=== PATIENT | female | born 1935 | race Caucasian/White ===

== ENCOUNTER 2023-12-30 17:53 | Inpatient (IN) | payer MEDICARE, OTHER, SELFPAY ==
[2023-12-30] VITALS (23 sets, daily range): BP systolic 113–156; BP diastolic 56–109; BMI 25.8
--- NOTE | 2023-12-30 14:58 | ED.GENMED ---
History of Present Illness
<Elisabet Redd, [employer] - Last Filed: 12/31/23 11:18>
General
Chief Complaint: Breathing Problem
Source: patient
Exam Limitations: none
Time Seen by Provider: 12/30/23 14:57
Nursing documentation reviewed up to this point in time: agreed with
History of Present Illness
History of Present Illness:
88-year-old female with history of paroxysmal A-fib h/o ablation, chronic LE edema, M�ni�re's disease, GERD, CAD, HTN, HLD, rheumatoid arthritis on chronic prednisone, fibromyalgia, hypothyroid, low back pain due to lumbar compression fractures in
2022. Presents for 'afib.'
Pt states she had ablation 'years ago,' no Afib since and went into Afib last night with palpitations, shortness of breath, and fatigue. Denies CP, n/v/d/c.
<Noam Anders, DO - Last Filed: 12/30/23 16:51>
History of Present Illness
History of Present Illness:
See MDM
Past History
<Elisabet Redd, [employer] - Last Filed: 12/31/23 11:18>
Past History
ED Past Medical History: Arrthythmia (Atrial fib), CAD, HTN, Hypercholesterolemia, Hypothyroidism and Other (fibromyalgia)
ED Past Surgical History: Appendectomy, Cardiac (ablation, ), Orthopedic, Tonsilectomy and Other (Partial thyroidectomy)
Social History
Tobacco: Non-smoker
Alcohol: None
Drug: None
Personal:
Living: alone
Employment: Retired
Family History
Family History: Other (Mother with NV. Father with testicular cancer)
Phy Exam
<Noam Anders DO - Last Filed: 12/30/23 16:51>
Physical Exam
Physical Exam:
See MDM
Scores
<Noam M. Anders, DO - Last Filed: 12/30/23 16:51>
Heart Failure Risk
Heart Failure Risk Score: Not Applicable
Course
<Elisabet Redd, [employer] - Last Filed: 12/31/23 11:18>
Orders/Labs/Results
Orders:
Orders
12/30/23 14:17
ECG [Electrocardiogram (*1)] Urgent
Reason for Study: Chest Pain
EKG- Treatment ONCE
12/30/23 15:25
Diltiazem HCl [Cardizem] 10 mg IV NOW STA
CR Chest - 2 Views Urgent
Comment:
Reason For Exam: SOB
12/30/23 15:27
Complete Blood Count/With Diff Urgent
Comprehensive Metabolic Panel Urgent
NT-proBNP Urgent
PT/INR [Prothrombin Time] Urgent
Troponin I Urgent
12/30/23 15:41
EKG [Electrocardiogram (*1)] Urgent
Reason for Study: Bradycardia / Tachycardia
12/30/23 15:42
EKG- Treatment ONCE
12/30/23 17:13
Admit/Transfer Patient As Directed
Co-Sign Provider:
Level of Care: Inpatient admission
Assign to:: Telemetry
Physician / Group: Primitivo Feldman
Diagnosis: Atrial Fibrillation
Reason for Telemetry: Arrhythmia
Date to Stop Telemetry: 01/02/24
Time to Stop Telemetry: 11:00
Reason for Hospitalization: Atrial Fibrillation
Expected length of stay greater than two midnights?: Yes
ELOS- Estimated Length of Stay in days: 3
I certify the patient meets the requirements for IP care: Yes
12/30/23 17:14
PRN Pain Medication Management As Directed
May give lesser potent ordered pain med per pt: Yes
preference::
Protocol:: Medication orders for pain may be administered in a
manner that supports deferring to patient preference
when the pt is:
- Requesting an ordered lesser potent pain medication.
Least to most potent pain medications are defined
as: acetaminophen < NSAID < tramadol < opioids
(morphine, oxycodone, hydromorphone).
- Requesting a lesser dose of the same medication IF
ORDERED.
- Requesting a less intrusive route of administration
if both routes are prescribed by the provider (PO <
IV).
12/30/23 17:19
Code Status As Directed
Resuscitation Status: Do not resuscitate
Reached after discussion with pt or family/Healthcare POA: Yes
Decision communicated with: Patient
12/30/23 17:26
DNR Bracelet Application ONCE
12/30/23 20:38
Amlodipine [Norvasc] 2.5 mg PO BID
Diazepam [Valium] 5 mg PO BIDPRN PRN
Enoxaparin Sodium [Lovenox] 40 mg SC QPM
Potassium Chloride [KCl] 10 meq PO BID
12/30/23 20:38
CARDIOLOGY CONSULT Routine
Consulting Provider: Dino Loving
Was physician already notified: Yes
Activity As Directed
Activity Level: Out of Bed-Early Mobility
I&O [Intake/ Output] As Directed
Frequency: q12h
Vital Signs As Directed
Frequency: Per unit guidelines
Weight As Directed
Frequency: Daily
DX Deep Vein Thrombosis Video Routine
DX Deep Vein Thrombosis Video Routine
12/30/23 20:50
Carboxymethylcellulose [Refresh Celluvisc Gel] 1 drops BOTH EYES Q4HPRN PRN
12/30/23 22:00
Famotidine [Pepcid] 20 mg PO HS
Levothyroxine [Synthroid] 75 mcg PO HS
12/31/23 07:25
Basic Metabolic Panel IN AM
Complete Blood Count/No Diff IN AM
12/31/23 08:00
Aspirin Low Dose EC [Aspir Low (Enteric Coated)] 81 mg PO DAILY
Atenolol [Tenormin] 100 mg PO DAILY
Calcium Carbonate [Oscal Marcin 500] 500 mg PO DAILY
Cyanocobalamin [Vitamin B-12] 1,000 mcg PO DAILY
Fluorometholone [Fml 0.1% Ophthalmic Suspension] See Dose Instructions BOTH EYES DAILY
Furosemide [Lasix] 60 mg PO DAILY
Loratadine [Claritin] 10 mg PO DAILY
Prednisone [Deltasone] 2.5 mg PO DAILY
01/01/24 06:00
Basic Metabolic Panel IN AM
Complete Blood Count/No Diff IN AM
01/02/24 06:00
Basic Metabolic Panel IN AM
Complete Blood Count/No Diff IN AM
01/02/24 11:00
DC Protocol for Telemetry ONCE
Abnormal Lab Results
12/30/23
15:27
RDW 15.0 H %
(11.5-14.5)
Absolute Lymphs (auto) 0.8 L 10^3/uL
(1.2-3.4)
Neutrophils % 80.3 H %
(42.2-75.2)
Lymphocytes % 10.2 L %
(20.5-51.1)
BUN 29 H mg/dl
(7-17)
Glucose 108 H mg/dl
(70-99)
Calcium 10.7 H mg/dl
(8.4-10.2)
12/30/23 15:27
12/30/23 15:27
Vital Signs
Initial and Last Documented VS:
Initial Vital Signs
Temp Pulse Resp BP Pulse Ox
98.0 F 73 16 144/82 98
12/30/23 14:19 12/30/23 14:19 12/30/23 14:19 12/30/23 14:19 12/30/23 14:19
Last Documented Vital Signs
Temp Pulse Resp BP Pulse Ox
97.4 F 70 18 111/61 100
12/31/23 11:00 12/31/23 11:00 12/31/23 11:00 12/31/23 11:00 12/31/23 11:00
<Noam Anders, DO - Last Filed: 12/30/23 16:51>
Orders/Labs/Results
Orders:
Orders
12/30/23 14:17
ECG [Electrocardiogram (*1)] Urgent
Reason for Study: Chest Pain
EKG- Treatment ONCE
12/30/23 15:25
Diltiazem HCl [Cardizem] 10 mg IV NOW STA
CR Chest - 2 Views Urgent
Comment:
Reason For Exam: SOB
12/30/23 15:27
Complete Blood Count/With Diff Urgent
Comprehensive Metabolic Panel Urgent
NT-proBNP Urgent
PT/INR [Prothrombin Time] Urgent
Troponin I Urgent
12/30/23 15:41
EKG [Electrocardiogram (*1)] Urgent
Reason for Study: Bradycardia / Tachycardia
12/30/23 15:42
EKG- Treatment ONCE
12/30/23 17:13
Admit/Transfer Patient As Directed
Co-Sign Provider:
Level of Care: Inpatient admission
Assign to:: Telemetry
Physician / Group: Primitivo Feldman
Diagnosis: Atrial Fibrillation
Reason for Telemetry: Arrhythmia
Date to Stop Telemetry: 01/02/24
Time to Stop Telemetry: 11:00
Reason for Hospitalization: Atrial Fibrillation
Expected length of stay greater than two midnights?: Yes
ELOS- Estimated Length of Stay in days: 3
I certify the patient meets the requirements for IP care: Yes
12/30/23 17:14
PRN Pain Medication Management As Directed
May give lesser potent ordered pain med per pt: Yes
preference::
Protocol:: Medication orders for pain may be administered in a
manner that supports deferring to patient preference
when the pt is:
- Requesting an ordered lesser potent pain medication.
Least to most potent pain medications are defined
as: acetaminophen < NSAID < tramadol < opioids
(morphine, oxycodone, hydromorphone).
- Requesting a lesser dose of the same medication IF
ORDERED.
- Requesting a less intrusive route of administration
if both routes are prescribed by the provider (PO <
IV).
12/30/23 17:19
Code Status As Directed
Resuscitation Status: Do not resuscitate
Reached after discussion with pt or family/Healthcare POA: Yes
Decision communicated with: Patient
12/30/23 17:26
DNR Bracelet Application ONCE
12/30/23 20:38
Amlodipine [Norvasc] 2.5 mg PO BID
Diazepam [Valium] 5 mg PO BIDPRN PRN
Enoxaparin Sodium [Lovenox] 40 mg SC QPM
Potassium Chloride [KCl] 10 meq PO BID
12/30/23 20:38
CARDIOLOGY CONSULT Routine
Consulting Provider: Dino Loving
Was physician already notified: Yes
Activity As Directed
Activity Level: Out of Bed-Early Mobility
I&O [Intake/ Output] As Directed
Frequency: q12h
Vital Signs As Directed
Frequency: Per unit guidelines
Weight As Directed
Frequency: Daily
DX Deep Vein Thrombosis Video Routine
DX Deep Vein Thrombosis Video Routine
12/30/23 20:50
Carboxymethylcellulose [Refresh Celluvisc Gel] 1 drops BOTH EYES Q4HPRN PRN
12/30/23 22:00
Famotidine [Pepcid] 20 mg PO HS
Levothyroxine [Synthroid] 75 mcg PO HS
12/31/23 07:25
Basic Metabolic Panel IN AM
Complete Blood Count/No Diff IN AM
12/31/23 08:00
Aspirin Low Dose EC [Aspir Low (Enteric Coated)] 81 mg PO DAILY
Atenolol [Tenormin] 100 mg PO DAILY
Calcium Carbonate [Oscal Marcin 500] 500 mg PO DAILY
Cyanocobalamin [Vitamin B-12] 1,000 mcg PO DAILY
Fluorometholone [Fml 0.1% Ophthalmic Suspension] See Dose Instructions BOTH EYES DAILY
Furosemide [Lasix] 60 mg PO DAILY
Loratadine [Claritin] 10 mg PO DAILY
Prednisone [Deltasone] 2.5 mg PO DAILY
01/01/24 06:00
Basic Metabolic Panel IN AM
Complete Blood Count/No Diff IN AM
01/02/24 06:00
Basic Metabolic Panel IN AM
Complete Blood Count/No Diff IN AM
01/02/24 11:00
DC Protocol for Telemetry ONCE
Abnormal Lab Results
12/30/23
15:27
RDW 15.0 H %
(11.5-14.5)
Absolute Lymphs (auto) 0.8 L 10^3/uL
(1.2-3.4)
Neutrophils % 80.3 H %
(42.2-75.2)
Lymphocytes % 10.2 L %
(20.5-51.1)
BUN 29 H mg/dl
(7-17)
Glucose 108 H mg/dl
(70-99)
Calcium 10.7 H mg/dl
(8.4-10.2)
12/30/23 15:27
12/30/23 15:27
Vital Signs
Initial and Last Documented VS:
Initial Vital Signs
Temp Pulse Resp BP Pulse Ox
98.0 F 73 16 144/82 98
12/30/23 14:19 12/30/23 14:19 12/30/23 14:19 12/30/23 14:19 12/30/23 14:19
Last Documented Vital Signs
Temp Pulse Resp BP Pulse Ox
97.4 F 70 18 111/61 100
12/31/23 11:00 12/31/23 11:00 12/31/23 11:00 12/31/23 11:00 12/31/23 11:00
<Elisabet Redd, [employer] - Last Filed: 12/31/23 11:18>
MDM/Problems Addressed
MDM/Problems Addressed:
88-year-old female with history of paroxysmal A-fib h/o ablation, chronic LE edema, M�ni�re's disease, GERD, CAD, HTN, HLD, rheumatoid arthritis on chronic prednisone, fibromyalgia, hypothyroid, low back pain due to lumbar compression fractures in
2022. Presents for 'afib.'
Pt states she had ablation 'years ago' and went into Afib last night with palpitations, shortness of breath, and fatigue. Denies CP, n/v/d/c.
<Noam Anders, DO - Last Filed: 12/30/23 16:51>
MDM/Problems Addressed
Differential Diagnosis Includes:
HPI and MDM Narrative:
88-year-old female presenting with shortness of breath since last night. Patient found to be A-fib on arrival. Patient states this is not her normal A-fib presentation. She states she usually feels fluttering in her chest. However, patient will
be rate showed A-fib which is likely new for her. She had an ablation 10 years ago and has been in sinus rhythm ever since, per patient. Patient is not on a blood thinner. She actually has cardiology appointment tomorrow
Physical exam
General: Well appearing and non-toxic
HEENT: protecting airway
Neck: appears supple
CV: No evidence of cyanosis. Regular rate, irregular rhythm
Resp: No accessory muscle use. Lungs clear
Abd: Non-distended
Extremities: Dependent edema to both legs
Neuro: alert
Psych: Normal affect
Skin: Intact
Problems Addressed including Acute and Chronic Conditions affecting care:
1. Rate controlled A-fib
Acuity: acute
Prognosis: stable
Details: Will give small dose of Cardizem in an attempt to chemically cardiovert.
2. Shortness of breath
Acuity: acute
Prognosis: stable
Details: Likely symptoms of A-fib. Will obtain chest x-ray and basic blood work
Updates
After dose of Cardizem, patient's heart rate did dip into the 30s. Patient becoming extremely symptomatic but quickly returned to the 80s. Even after going back to the 80s, patient still extremely symptomatic. Chest x-ray clear. Will admit based
on symptomatic A-fib
Differential Diagnosis (but not limited to): Symptomatic A-fib, CHF exacerbation, pneumonia
Testing considered:
Drug therapy (if applicable): OTC meds, please see d/c instruction regarding Rx drugs
Amount and/or Complexity of Data Reviewed
Clinical info obtained from: Patient
External data reviewed: N/A
Labs I independently reviewed (but not limited to): Elevated BNP
Radiology: X-ray independently reviewed: Chest x-ray clear
Pulse Ox: not hypoxic
EKG independently reviewed: A-fib, normal axis, no STEMI
Shipping Receiving Clerk: Rate controlled A-fib
Critical Care: N/A
Risk of Complication:
Social Determinants of health: Good social support
Discussed with other providers: Hospitalist
Escalation of Care includes Admit/Obs: Given her symptomatic A-fib, will admit
Occasional wrong word or 'sound a like' substitutions may have occurred due to the inherent limitations of voice recognition software. Read the chart carefully and recognize, using context, where substitutions have occurred.
<DO Kimmy Figueroa Filed: 12/30/23 16:51>
*Critical Care Note
Total Time (30-74mins, 75-104mins- exclusive of procedures): Not Applicable
ED Attending Note
<Elisabet Redd [employer] - Last Filed: 12/31/23 11:18>
-
Portions of this chart may have been created with voice recognition software.� Occasional wrong word or��sound alike� substitutions may have occurred due to the inherent limitations of voice recognition software.
Discharge Plan
Departure
Patient Disposition: Admit
Date of Disposition: 12/30/23
Time of Disposition: 16:51
Admit to: Telemetry
Presentation/result/management discussed w/ accepting MD/DO: Hospitalist
Discharge Problem:
A-fib
Interventions
Interventions:
*Risk Screen - Suicide Last Done: 12/30/23 14:19
*General Assessment Last Done: 12/30/23 15:22
*Neglect/Abuse Screening Last Done: 12/30/23 14:20
ED- Fall Risk Assessment Last Done: 12/30/23 15:22
*ED COVID-19 Vaccine History Last Done: 12/30/23 15:22
*Nursing Disposition Last Done: 12/31/23 01:29
ED- Cardiac Assessment Last Done: 12/30/23 15:49
ED- Pulmonary Assessment Last Done: 12/30/23 15:49
Discharge Date and Time
Discharge Date/Time: 12/31/23 01:30
[2023-12-30] MEDS: CARDIZEM 10 MG IV (15:34)
[2023-12-30 15:38] LABS: % Basophils 0.4 % (0-2); % Eosinophils 1.1 % (0-6); % Immature Granulocytes 0.4 % (0-0.5); % Lymphocytes 10.2 % (20.5-51.1); % Monocytes 7.6 % (1.7-9.3); % Neutrophils 80.3 % (42.2-75.2); Absolute Eosinophils 0.1 10^3/uL (0-0.7); Absolute Lymphocytes 0.8 10^3/uL (1.2-3.4); Absolute Monocytes 0.6 10^3/uL (0.1-0.6); Absolute Neutrophils 5.9 10^3/uL (1.4-6.5); Hematocrit 38.9 % (37.0-47.0); Hemoglobin 12.9 g/dL (12.0-16.0); Mean Corp Hgb Conc. 33.2 g/dL (33.0-37.0); Mean Corpuscular Hgb 29.7 pg (27.0-31.0); Mean Corpuscular Volume 89.4 fL (81.0-99.0); Mean Platelet Volume 8.8 fL (7.4-10.4); Nucleated Red Blood Cells % 0 %; Platelet Count 244 10^3/uL (130-400); Red Blood Cell Count 4.35 10^6/uL (4.20-5.40); White Blood Cell Count 7.3 10^3/uL (4.8-10.8)
[2023-12-30 15:48] LABS: ALT (SGPT) 22 U/L (0-35); AST (SGOT) 32 U/L (14-36); Albumin 4.9 g/dl (3.5-5.0); Alkaline Phosphatase 91 U/L (38-126); Blood Urea Nitrogen 29 mg/dl (7-17); Calcium 10.7 mg/dl (8.4-10.2); Carbon Dioxide 25 mmol/L (22-30); Chloride 98 mmol/L (98-107); Estimated Creatinine Clearance 33 ml/min; Glucose 108 mg/dl (70-99); Potassium 4.1 mmol/L (3.5-5.1); Sodium 135 mmol/L (135-145); Total Bilirubin 0.8 mg/dl (0.2-1.3); Total Protein 7.6 g/dl (6.3-8.2); eGFR > 60.00
[2023-12-30 16:00] LABS: NT-proBNP 3930 pg/ml; Troponin I < 0.012 ng/ml
[2023-12-30 16:07] LABS: INR 0.97; PT 12.7 Sec (11.4-14.6)
--- NOTE | 2023-12-30 16:41 | EDRN ---
Dr. Anders made aware of patient's about 3 second pause.
--- NOTE | 2023-12-30 17:30 | HPS.HSE ---
Family Physician
-
Family Physician: Genoveva Land
Chief Complaint
-
in A Fib
History of Present Illness
88F HX Prx A-fib h/o ablation, chronic LE edema, M�ni�re's disease, GERD, CAD, HTN, HLD, rheumatoid arthritis on chronic prednisone, fibromyalgia, hypothyroid, low back pain due to lumbar compression fractures in 2022 seen at ER for evaluation of
recurrence AFib.
- s/p ablation 'years ago,'
- no A Fib since ablation
- went into Afib last night with palpitations, shortness of breath, and fatigue.
ROS
Denies CP, n/v/d/c.
Medical History
Past Medical History
Past Medical History: Reports Arrhythmia (Atrial fibrillation), HTN and Hypothyroidism
Additional Past Medical History:
Chronic back pain, hyperlipidemia, rheumatoid arthritis, fibromyalgia, diabetes, cataracts, skin cancer,CKD
Past Surgical History: Reports Appendectomy and Tonsilectomy
Additional Past Surgical History:
Partial thyroidectomy, skin cancer surgery
Social History
Tobacco: Non-smoker
Alcohol: None
Living: Alone
Family History
Family History: Cancer (Testicular cancer Father) and Other (Mother with history of heart attack)
Allergies / Home Medications
Allergies reflects when Allergies were last updated in [facility].
Home Medications with original date entered in [facility]
Allergy/Medication List:
Allergies
Allergy/AdvReac Type Severity Reaction Status Date / Time
povidone-iodine Allergy Unknown Unknown Verified 07/16/19 14:14
[From Betadine]
prochlorperazine Allergy Unknown Unknown Verified 07/16/19 14:14
[From Compazine]
red dye Allergy Unknown Unknown Verified 07/16/19 14:14
soap [From Betadine] Allergy Unknown Unknown Verified 07/16/19 14:14
tioconazole Allergy Unknown Unknown Verified 07/16/19 14:14
[From Monistat 1
(tioconazole)]
hydromorphone [From Dilaudid] Allergy Unknown Verified 07/16/19 14:14
metolazone Allergy Unknown Verified 07/16/19 14:14
nitrofurantoin Allergy Unknown Verified 07/16/19 14:14
[From Macrobid]
nystatin Allergy Unknown Verified 07/16/19 14:14
Sulfa (Sulfonamide Allergy Unknown Verified 07/16/19 14:14
Antibiotics)
terbinafine [From Lamisil] Allergy Unknown Verified 07/16/19 14:14
iv dye Allergy Unknown Uncoded 07/16/19 14:14
Home Medications
acetaminophen 500 mg tablet (Tylenol Extra Strength) 1,000 mg PO TID 08/13/17
ascorbic acid (vitamin C) 500 mg chewable tablet (Vitamin C) 500 mg PO DAILY@119908/13/17
atenolol 100 mg tablet 100 mg PO DAILY@119908/13/17
biotin 800 mcg tablet 800 mcg PO DAILY ##0 08/13/17
cyanocobalamin (vitamin B-12) 1,000 mcg tablet 1,000 mcg PO MOWEFR 08/13/17
diazepam 5 mg tablet 5 mg PO DAILYPRN PRN menieres disease/pain at night 08/13/17
furosemide 40 mg tablet 80 mg PO DAILY 08/13/17
levothyroxine 50 mcg tablet 75 mcg PO HS 08/13/17
loratadine 10 mg tablet 10 mg PO DAILY@1200 08/13/17
pkiqsalt-bts-pwyks acid 0.4 mg-lycopene 300 mcg-lutein 250 mcg tablet (Centrum Silver) 1 ea PO DAILY@119908/13/17
potassium chloride 10 mEq tablet,extended release 10 meq PO BID 08/13/17
prednisone 2.5 mg tablet 2.5 mg PO DAILY 08/13/17
amlodipine 2.5 mg tablet (Norvasc) 2.5 mg PO BID 07/14/22
aspirin 81 mg tablet,delayed release 81 mg PO DAILY@1200 07/14/22
calcium carbonate 500 mg calcium (1,250 mg) tablet 500 mg PO DAILY 07/14/22
cholecalciferol (vitamin D3) 25 mcg (1,000 unit) capsule (Vitamin D3) 25 mcg PO DAILY@1200 07/14/22
cimetidine 300 mg tablet 300 mg PO QPM 07/14/22
cranberry 400 mg capsule 400 mg PO DAILY 07/14/22
furosemide 40 mg tablet (Lasix) 40 mg PO DAILY@1300 07/14/22
methylprednisolone 4 mg tablets in a dose pack (Medrol (Michele)) 0 mg PO PER PKG DIR 07/14/22
omega 6-odz-rau-fish oil 1,000 mg (120 mg-180 mg) capsule (Fish Oil) 2 cap PO QPM 07/14/22
sodium chloride 5 % eye ointment (Jamir 128) 1 applic BOTH EYES DAILY 07/14/22
Review of Systems
-
A 12 point ROS was completed and negative except as noted: Yes
Cardiac: Reports See HPI, Chest Pain and Palpitations
Abdomen/GI: Denies Abdominal Pain or Constipated
: Reports Other (Difficulty passing urine); Denies Dysuria
Musculoskeletal: Reports Edema (Chronic lower extremity edema)
Physical Exam
Vital Signs
Vital Signs
Temp Pulse Resp BP Pulse Ox
98.0 F 70 16 125/75 97
12/30/23 14:19 12/30/23 17:10 12/30/23 17:10 12/30/23 17:10 12/30/23 17:10
Physical Exam
General: Well Developed, Well Nourished and No Apparent Distress
HEENT: NormoCephalic, Moist mucous membranes and Atraumatic
Respiratory: Clear
Cardiac: S1/S2 and Irregular Rhythm
GI: Soft, Non Tender, Non Distended and Normal Bowel Sounds; No Organomegaly
Rectal: Deferred by Provider
Musculoskeletal: No Clubbing, No Cyanosis and No Edema
Skin: No Rash
Neuro: Nonfocal/grossly intact
Laboratory Results
-
12/30/23 15:27
12/30/23 15:27
Laboratory Results
PT 12.7 Sec (11.4-14.6) 12/30/23 15:27
INR 0.97 12/30/23 15:27
Total Bilirubin 0.8 mg/dl (0.2-1.3) 12/30/23 15:27
AST 32 U/L (14-36) 12/30/23 15:27
ALT 22 U/L (0-35) 12/30/23 15:27
Alkaline Phosphatase 91 U/L (38-126) 12/30/23 15:27
Troponin I < 0.012 ng/ml 12/30/23 15:27
Data Reviewed
-
Medical Tests (Nuc Med, Echo, EKG etc): Report Reviewed by me
Lab Data: Labs Reviewed by me
Old Records: Reviewed
Impression/Plan
-
Reviewed VS: afebrile HR 67 BP 130/80
Data
nl CBC
BUN 29
BG 108
Ca 10.7
NEG TPNI
BNP 3930
CXR : Clear
EKG
ATRIAL FIBRILLATION
CANNOT RULE OUT ANTERIOR INFARCT (CITED ON OR BEFORE 30-DEC-2023)
ABNORMAL ECG
WHEN COMPARED WITH ECG OF 30-DEC-2023 14:25,
NO SIGNIFICANT CHANGE WAS FOUND
03/13/21 TTE
LVEF 55-60
Diastolic function indeterminate.
Normal excursion and mild to moderate mitral regurgitation. Mildly dilated left atrial size.
Sclerotic, trileaflet aortic valve with normal leaflet excursion and trace aortic regurgitation.
Last hospitalist admission:
Date of Admission: 07/14/22 - Date of Discharge: 07/17/22
Primary diagnoses: Low back pain due to L1/L2 compression fractures
ASSESSMENT & PLAN
Pending Rx reconciliation
Prx AF - HR down to 30s with IV Cardizem 10 mg
No A Fib since ablation for HX Prx AF
Normotensive. Hemodynamically stable
Not CV candidate . Not on AC
LVEF 55- 60
- Currently HR in mid 60s
- c/w atenolol - hold if HR < 65
- AC per Card evaluation
- [facility] card consult
Elevated pro BNP
Clear CXR
HX diastolic dysfunction, LVEF 55- 60
HX Chronic lower extremity edema
- c/w PO Lasix 60 daily
- daily IO and Wt
HX CAD
- on ASA and aspirin, atenolol
Mild to moderate MR
[facility] HTN
- c/w Norvasc
Hyperlipidemia
-not on any medicines
HX Rheumatoid arthritis
HX Fibromyalgia
- on chronic prednisone
HX Chr LBP
M�ni�re's disease-takes Valium as needed
Hypothyroidism
- cont. synthroid
DVT Px; [facility]
DNR ?
IP TLM
[2023-12-30] MEDS: NORVASC 2.5 MG PO (21:34)
[2023-12-30] MEDS: PEPCID 20 MG PO (21:34)
[2023-12-30] MEDS: SYNTHROID 75 MCG PO (21:35)
[2023-12-30] MEDS: KCL 10 MEQ PO (21:35)
[2023-12-30] MEDS: LOVENOX 40 MG SC (21:40)
[2023-12-31] VITALS (7 sets, daily range): BP systolic 101–155; BP diastolic 61–89; BMI 24.7
[2023-12-31] MEDS: VALIUM 5 MG PO (01:28)
--- NOTE | 2023-12-31 02:00 | PTCARENOTE ---
Pt arrived to [facility] from ED and ambulated with x1 assist standby from stretcher to bed. Pt is AAOx3 but reports dizziness when standing. VSS on admission. Pt oriented to room, call harris within reach. Bed alarm in place for pt safety. Afib on
tele #[phone]. Will continue with current plan of care.
[2023-12-31] MEDS: REFRESH CELLUVISC GEL 1 DROPS BOTH EYES ×2 (04:27→20:10)
[2023-12-31] MEDS: TYLENOL 1000 MG PO (05:08)
--- NOTE | 2023-12-31 05:30 | PTCARENOTE ---
Pt reports 5/10 pain to her left upper abdomen/left ribs. No PRN meds ordered. House TELEHEALTH CASE MANAGER Scout notified, 1x Tylenol 1000mg ordered and provided to pt and PRN Tylenol 650mg q4h ordered. Will continue with current care plan.
[2023-12-31] MEDS: PROTONIX 40 MG PO (07:34)
[2023-12-31] MEDS: KCL 10 MEQ PO ×2 (07:35→20:06)
[2023-12-31] MEDS: DELTASONE 2.5 MG PO (07:35)
[2023-12-31] MEDS: CLARITIN 10 MG PO (07:35)
[2023-12-31] MEDS: LASIX 60 MG PO (07:35)
[2023-12-31] MEDS: OSCAL CAL 500 500 MG PO (07:35)
[2023-12-31] MEDS: NORVASC 2.5 MG PO (07:36)
[2023-12-31] MEDS: TENORMIN 100 MG PO (07:36)
[2023-12-31] MEDS: ASPIR LOW (ENTERIC COATED) 81 MG PO (07:36)
[2023-12-31] MEDS: VITAMIN B-12 1000 MCG PO (07:37)
[2023-12-31] MEDS: FML 0.1% OPHTHALMIC SUSPENSION BOTH EYES (07:44)
[2023-12-31 08:07] LABS: Hematocrit 35.7 % (37.0-47.0); Hemoglobin 12.1 g/dL (12.0-16.0); Mean Corp Hgb Conc. 33.9 g/dL (33.0-37.0); Mean Corpuscular Hgb 30.7 pg (27.0-31.0); Mean Corpuscular Volume 90.6 fL (81.0-99.0); Mean Platelet Volume 9.4 fL (7.4-10.4); Platelet Count 225 10^3/uL (130-400); Red Blood Cell Count 3.94 10^6/uL (4.20-5.40); Red Cell Dist. Width 15.1 % (11.5-14.5); White Blood Cell Count 6.2 10^3/uL (4.8-10.8)
[2023-12-31 08:24] LABS: Blood Urea Nitrogen 21 mg/dl (7-17); Calcium 10.1 mg/dl (8.4-10.2); Carbon Dioxide 26 mmol/L (22-30); Chloride 101 mmol/L (98-107); Estimated Creatinine Clearance 33 ml/min; Glucose 84 mg/dl (70-99); Magnesium 1.9 mg/dl (1.6-2.3); Potassium 4.1 mmol/L (3.5-5.1); Sodium 136 mmol/L (135-145); eGFR > 60.00
--- NOTE | 2023-12-31 10:02 | W.PN.HOSP.TC ---
Today's Communication/Plan
-
see PN
Assessment / Plan
Assessment / Plan
88yo F with RA, fibromyalgia, hypothyroidism, HTN, Hx of afib s/p ablation not on meds came with feeling of palpitations, found Afib with RVR readily responded to IV Cardizem. Patient also noticed some pressure in sinuses for couple of days
A/P:
#Afib, paroxysmal with RVR
Rate control
Echo
telemetry
Cardiology for mgmt
Eliquis 2.5mg starter (patient >80yo and <60kg weight)
#Sinusitis
advise Flonase upon d/c. Agreed with patient to monitor off Abx - patient to follow up with her PCP
#Mild recurrent hypercalcemia
check PTH, vit D 0.25
further outpatient follow up
#Essential HTN
#RA on chronic prednisone
#Hypothyroidism
#GERD
#Anxiety
#B12 deficiency
cont home meds, but stop Norvasc
Check TSH
DVT ppx Eliquis
DNR/DNI
I have spent at least 58min reviewing chart, test results, communication with consultants and direct patient care
Anticipated Discharge: > 48 hours
Subjective/Interval History
-
Date of Service: December 31, 2023
Objective Data
-
Labs:
Laboratory Results
12/31/23
07:25
WBC 6.2
Hgb 12.1
Hct 35.7 L
Plt Count 225
Sodium 136
Potassium 4.1
Chloride 101
Carbon Dioxide 26
BUN 21 H
Creatinine 0.9
Glucose 84
Calcium 10.1
Vital Signs:
Vital Signs
Temp Pulse Resp BP Pulse Ox
97.4 F 81 16 155/89 98
12/31/23 07:40 12/31/23 07:40 12/31/23 07:40 12/31/23 07:40 12/31/23 07:40
I&O
12/30/23 12/31/23 01/01/24
06:59 06:59 06:59
Intake Total 480 / 480
Balance 480 / 480
Review of Systems
-
History Source: Patient
All other systems: Reviewed and negative
Cardiac: Reports Palpitations
Physical Exam
-
General: No Apparent Distress
HEENT: Normocephalic
Respiratory: Clear to Auscultation
Cardiac: Irregular Rhythm
GI: Soft, Nontender and Nondistended
Genito-urinary: No Costovertebral Tender
Musculoskeletal: No Clubbing, No Cyanosis and No Edema
Neuro: Awake, Alert, Oriented and AO x 3
Psych: Calm
[2023-12-31] MEDS: CARDIZEM CD 120 MG PO (10:56)
[2023-12-31] MEDS: FML 0.1% OPHTHALMIC SUSPENSION 1 DROP BOTH EYES (10:57)
--- NOTE | 2023-12-31 11:48 | CON.CAR ---
Addendum entered and electronically signed by Ángel Ricci MD 12/31/23 12:31:
I saw and examined the patient.
The REGULATORY COMPLIANCE MANAGER or PA's note was reviewed and I agree with the note.
Comment: General: Well developed, well nourished in NAD.
Neck: Supple, no JVD, HJR, carotids +2 B/L, no bruits bilaterally.
Heart: Non displaced PMI, irregular, no murmurs, No S3, S4, no rubs.
Lungs: Clear to auscultation bilaterally, no wheeze, rhonchi, rubs bilaterally,
normal expiratory phase.
Abdomen: Normal bowel sounds, soft, non-tender, non-distended.
Extremities: No clubbing, cyanosis or edema bilaterally.
Neuro: Grossly nonfocal, awake, alert and oriented x3.
Eula has history of A-fib status post ablation at [facility] in 2008 and not chronically anticoagulated due to patient choice and lack of clinical recurrence, mild to moderate MR, hypertension with labile blood pressure, chronic diastolic CHF. She
presented with palpitations consistent with her prior A-fib. This is occurred for at least the last 3 days. She was seen in the ER and found to be in A-fib.
She is in rate controlled A-fib. She feels this has been a decrease in her quality of life. Will start Eliquis 2.5 mg p.o. twice daily. Will plan on TURNER/cardioversion on 12/31 if remains in A-fib. proBNP is mildly elevated will give an extra
dose of Lasix tonight. Might be able to be discharged after TURNER/cardioversion on 12/31.
Original Note:
Consultation
Consultation Request
Date/Time Consultation Requested: 12/30/23 at 2038
Date/Time Consultation Performed: 12/31/23 at 1058
Requesting Provider: Dr. Gonzalez
Performing Provider: Dr. Ricci
Reason for Consultation: Afib with a h/o pAfib
Medical History
-
History of Present Illness:
Patient came to [facility] yesterday with SOB and is now admitted with recurrent Afib and cardiology has been consulted. Patient started with SOB Saturday night that persisted into Saturday so she came to [facility] and was found to be in Afib with controlled HRs
in the 80s. Patient has a h/o pAfib and previous PVI at [facility] in 2008. Patient has not had symptomatic recurrence of Afib since then and no longer takes OAC by her choice. Patient reports taking atenolol 100 mg daily plus additional 50 mg daily as
needed for SBP greater than 150. Patient says that she previously could detect palpitations from Afib and was confused by SOB as her presenting symptom now. ER gave patient Cardizem 10 mg IV x1 and HR slowed to the 30s and patient reported feeling
near syncopal, but this has since resolved. Denies chest pain. Patient was admitted to [facility] with near syncope in 08/2023 and Lasix dose was changed, but she reports compliance with new dose of Lasix 60 mg daily since last cardiology office visit
09/30/23.
PMH:
Paroxysmal Afib
s/p PVI at [facility] 2008 without documented clinical recurrence until 12/31/23
Not chronically anticoagulated by patient choice due to lack of clinical recurrence
Mild to mod MR by echo 03/13/21
HTN
Labile blood pressure
Chronic HFpEF
Hyperlipidemia
RA
Past Medical History
Past Medical History: Other (in HPI)
Past Surgical History: Appendectomy, Cardiac (moderate single vessel CAD by cath at [facility] 1998, PVI at [facility] 07/21/08), Gynecological (hysterectomy) and Other (thyroidectomy)
Social History
Tobacco: Non-Smoker
Alcohol: None
Drug: None
Personal:
Living: Alone
Family History
Family History: CAD and Cancer
Allergies / Home Medications
Allergy/AdvReac Type Severity Reaction Status Date / Time
hydromorphone [From Dilaudid] Allergy Unknown Verified 12/30/23 14:21
Iodinated Contrast Media Allergy Unknown Verified 12/30/23 14:21
metolazone Allergy Unknown Verified 12/30/23 14:21
nitrofurantoin Allergy Unknown Verified 12/30/23 14:21
[From Macrobid]
nystatin Allergy Unknown Verified 12/30/23 14:21
povidone-iodine Allergy Unknown Verified 12/30/23 14:21
[From Betadine]
prochlorperazine Allergy Unknown Verified 12/30/23 14:21
[From Compazine]
red dye Allergy Unknown Verified 12/30/23 14:21
soap [From Betadine] Allergy Unknown Verified 12/30/23 14:21
Sulfa (Sulfonamide Allergy Unknown Verified 12/30/23 14:21
Antibiotics)
terbinafine [From Lamisil] Allergy Unknown Verified 12/30/23 14:21
tioconazole Allergy Unknown Verified 12/30/23 14:21
[From Monistat 1
(tioconazole)]
�Medication �Instructions �Recorded �Confirmed �Type
acetaminophen 500 mg tablet 1,000 mg PO BID@1200,1800 08/13/17 12/31/23 History
(Tylenol Extra Strength) PAIN/FEVER/JOHNSON
ascorbic acid (vitamin C) 500 mg 500 mg PO DAILY Supplement 08/13/17 12/31/23 History
chewable tablet (Vitamin C)
atenolol 100 mg tablet 100 mg PO DAILY Blood pressure 08/13/17 12/31/23 History
cyanocobalamin (vitamin B-12) 1,000 mcg PO DAILY Supplement 08/13/17 12/31/23 History
1,000 mcg tablet
diazepam 5 mg tablet 5 mg PO BIDPRN PRN menieres 08/13/17 12/31/23 History
disease/pain at night
levothyroxine 50 mcg tablet 75 mcg PO HS Thyroid 08/13/17 12/31/23 History
loratadine 10 mg tablet 10 mg PO DAILY Allergies 08/13/17 12/31/23 History
diduhfjw-zpd-utwja acid 0.4 1 ea PO DAILY Supplement 08/13/17 12/31/23 History
mg-lycopene 300 mcg-lutein 250 mcg
tablet (Centrum Silver)
potassium chloride 10 mEq 10 meq PO BID Electrolyte Repletion 08/13/17 12/31/23 History
tablet,extended release
aspirin 81 mg tablet,delayed 81 mg PO DAILY Blood clot 07/14/22 12/31/23 History
release prevention/tx
calcium carbonate 500 mg PO DAILY Gastrointestinal 07/14/22 12/31/23 History
issue
cholecalciferol (vitamin D3) 25 25 mcg PO DAILY Supplement 07/14/22 12/31/23 History
mcg (1,000 unit) capsule (Vitamin
D3)
cimetidine 300 mg tablet 300 mg PO HS Gastrointestinal issue 07/14/22 12/31/23 History
furosemide 40 mg tablet (Lasix) 60 mg PO DAILY Fluid 07/14/22 12/31/23 History
retention/Swelling
omega 2-qng-oar-fish oil 1,000 mg 1 cap PO BID@1200,1800 Supplement 07/14/22 12/31/23 History
(120 mg-180 mg) capsule (Fish Oil)
Lactobac no.2-Bifidobac no.1-S. 1 cap PO DAILY Supplement 12/30/23 12/31/23 History
thermo 112.5 billion cell capsule
(Visbiome)
acetaminophen 500 mg tablet 500 mg PO BID@0700,2000 Pain 12/30/23 12/31/23 History
(Tylenol Extra Strength)
amlodipine 2.5 mg tablet 2.5 mg PO BID Blood Pressure 12/30/23 12/31/23 History
atenolol 50 mg tablet 50 mg PO DAILYPRN PRN blood 12/30/23 12/31/23 History
pressure
carboxymethylcellulose 1 drp BOTH EYES Q4HPRN PRN dry eyes 12/30/23 12/31/23 History
sod-hypromell 0.25 %-0.3 % eye
liquid gel drops
cranberry fruit 450 mg tablet 450 mg PO DAILY Supplement 12/30/23 12/31/23 History
(cranberry)
fluorometholone 0.1 % eye 1 drp BOTH EYES DAILY Eye Condition 12/30/23 12/31/23 History
drops,suspension
prednisone 5 mg tablet 2.5 mg PO DAILY Anti-Inflammatory 12/30/23 12/31/23 History
Review of Systems
-
History Source: Patient
All other systems: Negative unless noted
Physical Exam
Vital Signs
Temp Pulse Resp BP Pulse Ox
97.4 F 70 18 111/61 100
12/31/23 11:00 12/31/23 11:00 12/31/23 11:00 12/31/23 11:00 12/31/23 11:00
GEN: NAD. AAOx3
HEENT: EOMI, MMM
LUNGS: CTA B/L, no wheeze
CV: Afib on tele. Irreg irreg, no murmur
ABD: soft, BS+, NT, ND
EXT: +1 B/L LE edema. No clubbing, cyanosis or lesions B/L
NEURO: Gross non-focal
SKIN: Warm, dry and pink. No rash
Lab Results
12/31/23 07:25
12/31/23 07:25
Troponin I < 0.012 ng/ml 12/30/23 15:27
Gjm-S-[place] Pept 3930 pg/ml 12/30/23 15:27
Impression / Plan
-
PCP: Dr. Land
Cardiology: Dr. Cary Markham
Impression:
SOB and recurrent Afib on admission 12/31/23
Paroxysmal Afib
s/p PVI at [facility] 2008 without documented clinical recurrence until 12/31/23
Not chronically anticoagulated by patient choice due to lack of clinical recurrence
Mild to mod MR by echo 03/13/21
HTN
Labile blood pressure
Chronic HFpEF
Hyperlipidemia
RA
Echo 03/13/2021: EF 55 to 60%, normal regional wall motion, mild to moderate MR, trace aortic regurgitation, no significant change compared to echo from 08/2017
Plan:
-Patient came to [facility] yesterday with SOB and is now admitted with recurrent Afib and cardiology has been consulted. Patient started with SOB Saturday night that persisted into Saturday so she came to [facility] and was found to be in Afib with controlled HRs
in the 80s. Patient has a h/o pAfib and previous PVI at [facility] in 2008. Patient has not had symptomatic recurrence of Afib since then and no longer takes OAC by her choice. Patient reports taking atenolol 100 mg daily plus additional 50 mg daily as
needed for SBP greater than 150. Patient says that she previously could detect palpitations from Afib and was confused by SOB as her presenting symptom now. ER gave patient Cardizem 10 mg IV x1 and HR slowed to the 30s and patient reported feeling
near syncopal, but this has since resolved. Denies chest pain. Patient was admitted to [facility] with near syncope in 08/2023 and Lasix dose was changed, but she reports compliance with new dose of Lasix 60 mg daily since last cardiology office visit
09/30/23.
-pro-BNP elevated at 3930. Patient denies weight gain, but has edema. CXR unremarkable. Will give an extra dose of Lasix 40 mg PO this evening.
-No recurrence of near syncope. Patient with known h/o labile blood pressures.
-ECG reviewed by me shows Afib with controlled ventricular response, no acute ischemic changes
-Remains in rate controlled Afib of unclear duration. Patient is symptomatic so will attempt a TURNER/CV in the AM.
-Eliquis 2.5 mg BID (age 88, Cre 0.9, wt 59.38 kg) started last night. Will ask CM to check on cost. Patient previously tolerated warfarin in 2008.
-Also reviewed with patient rhythm control options including addition AAD or consideration for repeat ablation
[2023-12-31 12:59] LABS: Vitamin D, 25-OH*** 50.9 ng/mL (30-80)
[2023-12-31 13:12] LABS: TSH 2.61 uIU/ml (0.47-4.68)
[2023-12-31] MEDS: LASIX 40 MG PO (14:00)
--- NOTE | 2023-12-31 16:42 | CM ---
custodial manager reviewed patient's chart and met with patient and patient lives at [facility], patient is independent with adl's and ambulates with a walker or cane, patient drives.
PCP: Dr Land
Pharmacy: [facility]
Plan; Home when stable, no needs.
[2023-12-31] MEDS: PEPCID 20 MG PO (20:06)
[2023-12-31] MEDS: SYNTHROID 75 MCG PO (20:06)
[2023-12-31] MEDS: ELIQUIS 2.5 MG PO (20:06)
[2024-01-01 03:17] VITALS: BP 121/71
[2024-01-01 06:00] VITALS: BMI 24.8
[2024-01-01 07:09] LABS: Urine Albumin Negative (Neg - Trace); Urine Bilirubin Negative (Negative); Urine Character Clear (Clear); Urine Color Yellow; Urine Glucose Negative (Negative); Urine Ketone Negative (Negative); Urine Leukocyte Trace (Negative); Urine Nitrite Negative (Negative); Urine Occult Blood Trace (Negative); Urine Urobilinogen Negative (Neg - 1+); Urine pH 6.5 (5.0-9.0)
[2024-01-01 07:25] VITALS: BP 138/98
[2024-01-01 08:21] LABS: Urine Amorphous Seen
[2024-01-01 08:22] LABS: Urine Red Blood Cell 0-2 /HPF (0-2)
[2024-01-01] MEDS: ASPIR LOW (ENTERIC COATED) 81 MG PO (08:24)
[2024-01-01] MEDS: CARDIZEM CD 120 MG PO (08:24)
[2024-01-01] MEDS: DELTASONE 2.5 MG PO (08:24)
[2024-01-01] MEDS: PROTONIX 40 MG PO (08:24)
[2024-01-01] MEDS: KCL 10 MEQ PO ×2 (08:24→19:45)
[2024-01-01] MEDS: VITAMIN B-12 1000 MCG PO (08:24)
[2024-01-01] MEDS: LASIX 60 MG PO (08:24)
[2024-01-01] MEDS: TENORMIN 100 MG PO (08:25)
[2024-01-01] MEDS: OSCAL CAL 500 500 MG PO (08:25)
[2024-01-01] MEDS: ELIQUIS 2.5 MG PO ×2 (08:25→19:46)
[2024-01-01] MEDS: FML 0.1% OPHTHALMIC SUSPENSION 1 DROP BOTH EYES (08:25)
[2024-01-01] MEDS: CLARITIN 10 MG PO (08:25)
[2024-01-01 08:36] LABS: % Basophils 0.7 % (0-2); % Eosinophils 2.7 % (0-6); % Immature Granulocytes 0.4 % (0-0.5); % Lymphocytes 16.6 % (20.5-51.1); % Neutrophils 68.6 % (42.2-75.2); Absolute Eosinophils 0.2 10^3/uL (0-0.7); Absolute Lymphocytes 0.9 10^3/uL (1.2-3.4); Absolute Monocytes 0.6 10^3/uL (0.1-0.6); Absolute Neutrophils 3.9 10^3/uL (1.4-6.5); Hematocrit 38.1 % (37.0-47.0); Hemoglobin 12.9 g/dL (12.0-16.0); Mean Corp Hgb Conc. 33.9 g/dL (33.0-37.0); Mean Corpuscular Hgb 30.7 pg (27.0-31.0); Mean Corpuscular Volume 90.7 fL (81.0-99.0); Mean Platelet Volume 9.5 fL (7.4-10.4); Nucleated Red Blood Cells % 0 %; Platelet Count 244 10^3/uL (130-400); Red Cell Dist. Width 15.2 % (11.5-14.5); White Blood Cell Count 5.7 10^3/uL (4.8-10.8)
[2024-01-01] MEDS: REFRESH CELLUVISC GEL 1 DROPS BOTH EYES ×2 (08:51→22:05)
[2024-01-01 08:57] LABS: ALT (SGPT) 20 U/L (0-35); AST (SGOT) 29 U/L (14-36); Albumin 4.2 g/dl (3.5-5.0); Alkaline Phosphatase 77 U/L (38-126); Blood Urea Nitrogen 29 mg/dl (7-17); Calcium 9.8 mg/dl (8.4-10.2); Carbon Dioxide 22 mmol/L (22-30); Chloride 100 mmol/L (98-107); Estimated Creatinine Clearance 33 ml/min; Glucose 93 mg/dl (70-99); Potassium 4.1 mmol/L (3.5-5.1); Sodium 136 mmol/L (135-145); Total Protein 6.7 g/dl (6.3-8.2); eGFR > 60.00
--- NOTE | 2024-01-01 11:31 | CM ---
Addendum entered by Jenny Pool 01/01/24 16:53:
Cost of Eliquis is $135.58 per month, cardiology to discuss with patient and patient case manager can provide coupon.
Original Note:
Chart reviewed and plan is to home when stable.
Plan; Home when stable, patient would benefit for PT/OT evaluations.
--- NOTE | 2024-01-01 12:00 | ITS.CL.CARDI ---
Software Development Analyst - Cardioversion
Cardioversion
Procedure Report:
Date of Procedure: 01/01/24.
Procedure: Cardioversion.
Indication: Symptomatic atrial fibrillation.
Performing Physician: Sherry Trevino MD
Technique: The patient was brought to the holding area. Signed informed consent was obtained. A time out was called and performed. The patient was sedated by a member of the anesthesia service. Anticoagulation status was reviewed and TURNER was
performed to rule out evidence of left atrial, left atrial appendage, right atrial or right atrial appendage thrombus. R-2 pads were placed anteriorly and posteriorly. A 200 J synchronized biphasic shock restored normal sinus rhythm without
significant bradycardia. There were no complications.
Conclusion: Uncomplicated cardioversion from atrial fibrillation to sinus rhythm.
Recommendation: Routine post cardioversion care. Continue terminal press operator anticoagulation.
cc: jeff
--- NOTE | 2024-01-01 13:15 | W.PN.HOSP.TC ---
Today's Communication/Plan
-
sinus rhythm
PT/OT and discharge dispo based on them
Assessment / Plan
Assessment / Plan
88yo F with RA, fibromyalgia, hypothyroidism, HTN, Hx of afib s/p ablation not on meds came with feeling of palpitations, found Afib with RVR readily responded to IV Cardizem. Patient also noticed some pressure in sinuses for couple of days.
S/P CV on 01/01/24
A/P:
#Afib, paroxysmal with RVR
Rate control
Echo: EF 60%, mild MR, moderate TR
telemetry
Cardiology: s/p CV on 01/01/24
Eliquis 2.5mg starter (patient >80yo and <60kg weight)
#Sinusitis
advise Flonase upon d/c. Agreed with patient to monitor off Abx - patient to follow up with her PCP
#Mild recurrent hypercalcemia
check PTH, vit D 0.25
further outpatient follow up
#Essential HTN
#RA on chronic prednisone
#Hypothyroidism
#GERD
#Anxiety
#B12 deficiency
cont home meds, but stop Norvasc
Check TSH
DVT ppx Eliquis
DNR/DNI
I have spent at least 38min reviewing chart, test results, communication with consultants and direct patient care
Anticipated Discharge: Within 24 hours
Subjective/Interval History
-
Date of Service: January 01, 2024
Objective Data
-
Labs:
Laboratory Results
01/01/24
07:57
WBC 5.7
Hgb 12.9
Hct 38.1
Plt Count 244
Sodium 136
Potassium 4.1
Chloride 100
Carbon Dioxide 22
BUN 29 H
Creatinine 0.9
Glucose 93
Calcium 9.8
Total Bilirubin 1.0
AST 29
ALT 20
Alkaline Phosphatase 77
Vital Signs:
Vital Signs
Temp Pulse Resp BP Pulse Ox
97.5 F 80 14 138/98 98
01/01/24 08:15 01/01/24 07:25 01/01/24 07:25 01/01/24 07:25 01/01/24 08:00
I&O
12/31/23 01/01/24 01/02/24
06:59 06:59 06:59
Intake Total 480 / 480 600 / 600
Balance 480 / 480 600 / 600
Review of Systems
-
History Source: Patient
All other systems: Reviewed and negative
Physical Exam
-
General: No Apparent Distress
HEENT: Normocephalic
Respiratory: Clear to Auscultation
Cardiac: Regular Rhythm
GI: Soft
Musculoskeletal: No Clubbing, No Cyanosis and No Edema
Skin: Warm
Neuro: Awake, Alert, Oriented and AO x 3
Psych: Calm
--- NOTE | 2024-01-01 13:50 | PTCARENOTE ---
Patient received back in room s/p cardioversion. Patient now in normal sinus rhythm on telemetry, HR in the 60s. Patient reports a slight headache that she feels will resolve with food. Assistance provided to order lunch on low cholesterol diet.
Reinforced education to pt to ring before getting up.
[2024-01-01 14:34] VITALS: O2SAT 98
[2024-01-01] MEDS: TYLENOL 650 MG PO (14:37)
[2024-01-01 15:37] VITALS: BP 102/63
[2024-01-01 16:00] LABS: Intact PTH 32.9 pg/ml (13.6-85.8)
--- NOTE | 2024-01-01 16:15 | W.PN.CARDCBS ---
Addendum entered and electronically signed by Sedrick Harris MD 01/01/24 17:20:
I saw and examined the patient.
The Research Animal Facility Supervisor's note was reviewed and I agree with the note.
Comment: Briefly, 88-year-old woman past medical history of atrial fibrillation with prior PVI in 2008 who presented with dyspnea found to have recurrent atrial fibrillation
Underwent TURNER/direct-current cardioversion earlier today which successfully restored sinus rhythm
Continue atenolol for rate control and add diltiazem
New to Eliquis this hospitalization, plan to continue on discharge
Volume status appears reasonable today, continue oral Lasix
Original Note:
Today's Communication / Plan
-
Check cost of Eliquis
Successful TURNER/CV
Impression / Plan
-
PCP: Dr. Land
Cardiology: Dr. Cary Markham
Impression:
SOB and recurrent Afib on admission 12/31/23
Paroxysmal Afib
s/p PVI at [facility] 2008 without documented clinical recurrence until 12/31/23
s/p successful TURNER/CV 01/01/24
Not chronically anticoagulated by patient choice due to lack of clinical recurrence
Mild to mod MR by echo 03/13/21
HTN
Labile blood pressure
Chronic HFpEF
Hyperlipidemia
RA
Echo 03/13/2021: EF 55 to 60%, normal regional wall motion, mild to moderate MR, trace aortic regurgitation, no significant change compared to echo from 08/2017
Echo 12/31/2023 echo 12/31/2023: EF 55 to 60%, mild MR, mild aortic regurgitation
TURNER 01/01/2024: Normal BiV size and systolic function without regional wall motion abnormality, trace aortic regurgitation no evidence of LA/MIHAI/RA thrombus
Plan:
-Patient had successful TURNER/CV 01/01/24.
-New to Eliquis 2.5 mg BID (age 88, Cre 0.9, wt 59.38 kg). Will ask CM to check on cost. Patient previously tolerated warfarin in 2008. Rx e-scribed through [facility] because [facility] is not communicating with her pharmacy.
-pro-BNP elevated at 3930. Gave an extra dose of Lasix 40 mg PO x1 12/31/23 evening without increase in urine output.
-Patient with known h/o labile blood pressures.
-Outpatient dose of amlodipine 2.5 mg BID on hold
-Outpatient dose of atenolol 100 mg daily continued
-New to Cardizem CD 120 mg daily
-Likely d/c to home 01/02/24
HPI: Patient came to [facility] yesterday with SOB and is now admitted with recurrent Afib and cardiology has been consulted. Patient started with SOB Saturday night that persisted into Saturday so she came to [facility] and was found to be in Afib with controlled
HRs in the 80s. Patient has a h/o pAfib and previous PVI at [facility] in 2008. Patient has not had symptomatic recurrence of Afib since then and no longer takes OAC by her choice. Patient reports taking atenolol 100 mg daily plus additional 50 mg daily
as needed for SBP greater than 150. Patient says that she previously could detect palpitations from Afib and was confused by SOB as her presenting symptom now. ER gave patient Cardizem 10 mg IV x1 and HR slowed to the 30s and patient reported
feeling near syncopal, but this has since resolved. Denies chest pain. Patient was admitted to [facility] with near syncope in 08/2023 and Lasix dose was changed, but she reports compliance with new dose of Lasix 60 mg daily since last cardiology office
visit 09/30/23.
Progress Note - Wound Specialist
Subjective
Date of Service: January 01, 2024
No noticeable increase in urine output despite extra dose of Lasix PO last night
Objective
Labs:
01/01/24 07:57
01/01/24 07:57
Labs
Hgb 12.9 g/dL (12.0-16.0) 01/01/24 07:57
Hct 38.1 % (37.0-47.0) 01/01/24 07:57
Plt Count 244 10^3/uL (130-400) 01/01/24 07:57
PT 12.7 Sec (11.4-14.6) 12/30/23 15:27
INR 0.97 12/30/23 15:27
Sodium 136 mmol/L (135-145) 01/01/24 07:57
Potassium 4.1 mmol/L (3.5-5.1) 01/01/24 07:57
BUN 29 mg/dl (7-17) H 01/01/24 07:57
Creatinine 0.9 mg/dL (0.6-1.0) 01/01/24 07:57
Glucose 93 mg/dl (70-99) 01/01/24 07:57
Troponins
12/30/23
15:27
Troponin I < 0.012
Vital Signs and I&O:
Vital Signs
Temp Pulse Resp BP Pulse Ox
97.5 F 65 14 102/63 97
01/01/24 15:37 01/01/24 15:37 01/01/24 15:37 01/01/24 15:37 01/01/24 15:37
Vital Signs
Temp Pulse Resp BP Pulse Ox
97.5 F 65 14 102/63 97
01/01/24 15:37 01/01/24 15:37 01/01/24 15:37 01/01/24 15:37 01/01/24 15:37
Intake & Output
12/30/23 12/31/23 01/01/24 01/02/24
06:59 06:59 06:59 06:59
Intake Total 480 / 480 600 / 600
Balance 480 / 480 600 / 600
Physical Exam
Physical Exam
GEN: AAOx3
HEENT: MMM
LUNGS: No audible wheeze
CV: SR on tele
EXT: +1 B/L LE edema
NEURO: Gross non-focal
SKIN: No rash
[2024-01-01 19:30] VITALS: BP 115/55
[2024-01-01] MEDS: SYNTHROID 75 MCG PO (22:00)
[2024-01-01] MEDS: PEPCID 20 MG PO (22:00)
[2024-01-01 23:31] VITALS: BP 102/53
[2024-01-02 03:32] VITALS: BP 112/55
[2024-01-02 05:59] VITALS: BMI 24.7
[2024-01-02 07:35] VITALS: BP 101/63
[2024-01-02 08:22] LABS: Hematocrit 34.3 % (37.0-47.0); Hemoglobin 11.5 g/dL (12.0-16.0); Mean Corp Hgb Conc. 33.5 g/dL (33.0-37.0); Mean Corpuscular Hgb 30.8 pg (27.0-31.0); Mean Platelet Volume 9.6 fL (7.4-10.4); Platelet Count 233 10^3/uL (130-400); Red Blood Cell Count 3.73 10^6/uL (4.20-5.40); Red Cell Dist. Width 15.3 % (11.5-14.5); White Blood Cell Count 6.1 10^3/uL (4.8-10.8)
[2024-01-02] MEDS: KCL 10 MEQ PO (08:44)
[2024-01-02] MEDS: PROTONIX 40 MG PO (08:44)
[2024-01-02] MEDS: LASIX 60 MG PO (08:44)
[2024-01-02] MEDS: VITAMIN B-12 1000 MCG PO (08:44)
[2024-01-02] MEDS: OSCAL CAL 500 500 MG PO (08:44)
[2024-01-02] MEDS: CARDIZEM CD 120 MG PO (08:44)
[2024-01-02] MEDS: ELIQUIS 2.5 MG PO (08:44)
[2024-01-02] MEDS: DELTASONE 2.5 MG PO (08:44)
[2024-01-02] MEDS: CLARITIN 10 MG PO (08:46)
[2024-01-02] MEDS: ASPIR LOW (ENTERIC COATED) 81 MG PO (08:46)
[2024-01-02] MEDS: FML 0.1% OPHTHALMIC SUSPENSION 1 DROP BOTH EYES (08:46)
[2024-01-02] MEDS: TENORMIN PO (08:46)
[2024-01-02] MEDS: REFRESH CELLUVISC GEL 1 DROPS BOTH EYES (08:47)
[2024-01-02 08:57] LABS: Blood Urea Nitrogen 29 mg/dl (7-17); Calcium 9.8 mg/dl (8.4-10.2); Carbon Dioxide 28 mmol/L (22-30); Chloride 98 mmol/L (98-107); Estimated Creatinine Clearance 27 ml/min; Glucose 88 mg/dl (70-99); Potassium 4.2 mmol/L (3.5-5.1); Sodium 136 mmol/L (135-145); eGFR 48.33
--- NOTE | 2024-01-02 09:31 | W.PN.HOSP.TC ---
Today's Communication/Plan
-
pending final cardio eval, possible d/c
Assessment / Plan
Assessment / Plan
88yo F with RA, fibromyalgia, hypothyroidism, HTN, Hx of afib s/p ablation not on meds came with feeling of palpitations, found Afib with RVR readily responded to IV Cardizem. Patient also noticed some pressure in sinuses for couple of days.
S/P CV on 01/01/24 with sustained sinus rhythm. Remained asymptomatic. started on Eliquis and Cardizem by cardiology. Pending final cardio eval ahead of d/c as PT/OT recommended patient to come back to her place with outpatient PT/OT
A/P:
#Afib, paroxysmal with RVR
Rate control
Echo: EF 60%, mild MR, moderate TR
telemetry
Cardiology: s/p CV on 01/01/24
Eliquis 2.5mg starter (patient >80yo and <60kg weight)
#Sinusitis
advise Flonase upon d/c. Agreed with patient to monitor off Abx - patient to follow up with her PCP
#Mild recurrent hypercalcemia
check PTH, vit D 0.25
further outpatient follow up
#Essential HTN
#RA on chronic prednisone
#Hypothyroidism
#GERD
#Anxiety
#B12 deficiency
cont home meds, but stop Norvasc
Check TSH
DVT ppx Eliquis
DNR/DNI
I have spent at least 38min reviewing chart, test results, communication with consultants and direct patient care
Anticipated Discharge: Within 24 hours
Subjective/Interval History
-
Date of Service: January 02, 2024
Objective Data
-
Labs:
Laboratory Results
01/02/24
07:16
WBC 6.1
Hgb 11.5 L
Hct 34.3 L
Plt Count 233
Sodium 136
Potassium 4.2
Chloride 98
Carbon Dioxide 28
BUN 29 H
Creatinine 1.1 H
Glucose 88
Calcium 9.8
Vital Signs:
Vital Signs
Temp Pulse Resp BP Pulse Ox
97.5 F 59 18 101/63 100
01/02/24 07:35 01/02/24 08:46 01/02/24 07:35 01/02/24 07:35 01/02/24 07:35
I&O
01/01/24 01/02/24 01/03/24
06:59 06:59 06:59
Intake Total 600 / 600 480 / 480
Balance 600 / 600 480 / 480
Review of Systems
-
History Source: Patient
All other systems: Reviewed and negative
Physical Exam
-
General: No Apparent Distress
HEENT: Normocephalic
Respiratory: Clear to Auscultation
Cardiac: Regular Rhythm
GI: Soft, Nontender and Nondistended
Musculoskeletal: No Clubbing, No Cyanosis and No Edema
Neuro: Awake, Alert, Oriented and AO x 3
Psych: Calm
--- NOTE | 2024-01-02 11:33 | W.PN.CARDCBS ---
Addendum entered and electronically signed by Dario Allison MD 01/02/24 15:03:
88-year-old woman admitted 12/31/2023 with atrial fibrillation, first AF event since PVI in 2008. TURNER/Cardioversion December 31, was not anticoagulated at the time of admission. Now on Eliquis.
PMH: PAF status post PVI in 2008, mild to moderate mitral regurgitation, hypertension, HFpEF, hyperlipidemia, rheumatoid arthritis
Allergies, meds: Reviewed
Current meds: Atenolol 100 mg a day, calcium, Pepcid, B12, furosemide 60 mg a day, levothyroxine 75 mcg daily, Claritin, potassium 10 twice daily, prednisone 2.5 twice daily, pantoprazole, Protonix, diltiazem ER 120 daily and apixaban 2.5 twice daily
125/79, pulse 72, respiratory rate 18, afebrile, no distress, kyphoscoliosis, head neck exam unremarkable, lungs are clear, no significant murmur, JVD okay, abdomen benign, no significant edema, neuro nonfocal,
ECG December 31, sinus bradycardia, normal EKG
Hemoglobin 11.5, BUN and creatinine 29 and 1.1, potassium 4.2
Impression:
SOB and recurrent Afib on admission 12/31/23
Paroxysmal Afib
s/p PVI at [place] 2008 without documented clinical recurrence until 12/31/23
s/p successful TURNER/CV 01/01/24Not chronically anticoagulated by patient choice due to lack of clinical recurrence
Mild to mod MR by echo 03/13/21
HTN
Labile blood pressure
Chronic HFpEF
Hyperlipidemia
RA
Plan:
She appears stable, is in sinus rhythm, okay for discharge from cardiac standpoint.
Patient is new to diltiazem, and Eliquis. With addition of diltiazem, may be best to hold amlodipine.
Follow-up arranged.
Original Note:
Today's Communication / Plan
-
New to Cardizem CD and Eliquis
Aspirin stopped
Atenolol continued
Impression / Plan
-
PCP: Dr. Land
Cardiology: Dr. Cary Markham
Impression:
SOB and recurrent Afib on admission 12/31/23
Paroxysmal Afib
s/p PVI at [place] 2008 without documented clinical recurrence until 12/31/23
s/p successful TURNER/CV 01/01/24
Not chronically anticoagulated by patient choice due to lack of clinical recurrence
Mild to mod MR by echo 03/13/21
HTN
Labile blood pressure
Chronic HFpEF
Hyperlipidemia
RA
Echo 03/13/2021: EF 55 to 60%, normal regional wall motion, mild to moderate MR, trace aortic regurgitation, no significant change compared to echo from 08/2017
Echo 12/31/2023 echo 12/31/2023: EF 55 to 60%, mild MR, mild aortic regurgitation
TURNER 01/01/2024: Normal BiV size and systolic function without regional wall motion abnormality, trace aortic regurgitation no evidence of LA/MIHAI/RA thrombus
Plan:
-Patient had successful TURNER/CV 01/01/24 and remains in SR on 01/02/24. Patient reports palpitations, but nothing correlates on tele as reviewed by me.
-Spent 22 minutes in room with patient talking about the likely recurrence of Afib and that the plan would be to add amiodarone at that time. Discussed that if Afib recurs and patient otherwise feels fine then to call the office, but if Afib recurs
and is associated with chest pain, SOB, near syncope etc then to seek immediate attention.
-Reviewed stroke risk reductions with the addition of Eliquis 2.5 mg BID (age 88, Cre 0.9, wt 59.38 kg). Appreciate help of CM checking cost, it will be $147 month which patient is agreeable to and the cost may go down once she meets a deductible.
Rx e-scribed through [facility] because [facility] is not communicating with her pharmacy.
-Aspirin stopped
-pro-BNP elevated at 3930. Gave an extra dose of Lasix 40 mg PO x1 12/31/23 evening without increase in urine output.
-Patient with known h/o labile blood pressures.
-Outpatient dose of amlodipine 2.5 mg BID on hold
-New to Cardizem CD 120 mg daily
-Outpatient dose of atenolol 100 mg daily continued
-Likely d/c to home 01/02/24
HPI: Patient came to [facility] yesterday with SOB and is now admitted with recurrent Afib and cardiology has been consulted. Patient started with SOB Saturday night that persisted into Saturday so she came to [facility] and was found to be in Afib with controlled
HRs in the 80s. Patient has a h/o pAfib and previous PVI at [place] in 2008. Patient has not had symptomatic recurrence of Afib since then and no longer takes OAC by her choice. Patient reports taking atenolol 100 mg daily plus additional 50 mg daily
as needed for SBP greater than 150. Patient says that she previously could detect palpitations from Afib and was confused by SOB as her presenting symptom now. ER gave patient Cardizem 10 mg IV x1 and HR slowed to the 30s and patient reported
feeling near syncopal, but this has since resolved. Denies chest pain. Patient was admitted to [facility] with near syncope in 08/2023 and Lasix dose was changed, but she reports compliance with new dose of Lasix 60 mg daily since last cardiology office
visit 09/30/23.
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
Subjective
Date of Service: January 02, 2024
Feels palpitations
Objective
Labs:
01/02/24 07:16
01/02/24 07:16
Labs
Hgb 11.5 g/dL (12.0-16.0) L 01/02/24 07:16
Hct 34.3 % (37.0-47.0) L 01/02/24 07:16
Plt Count 233 10^3/uL (130-400) 01/02/24 07:16
PT 12.7 Sec (11.4-14.6) 12/30/23 15:27
INR 0.97 12/30/23 15:27
Sodium 136 mmol/L (135-145) 01/02/24 07:16
Potassium 4.2 mmol/L (3.5-5.1) 01/02/24 07:16
BUN 29 mg/dl (7-17) H 01/02/24 07:16
Creatinine 1.1 mg/dL (0.6-1.0) H 01/02/24 07:16
Glucose 88 mg/dl (70-99) 01/02/24 07:16
Troponins
12/30/23
15:27
Troponin I < 0.012
Vital Signs and I&O:
Vital Signs
Temp Pulse Resp BP Pulse Ox
97.5 F 59 18 101/63 100
01/02/24 07:35 01/02/24 08:46 01/02/24 07:35 01/02/24 07:35 01/02/24 07:35
Vital Signs
Temp Pulse Resp BP Pulse Ox
97.5 F 59 18 101/63 100
01/02/24 07:35 01/02/24 08:46 01/02/24 07:35 01/02/24 07:35 01/02/24 07:35
Intake & Output
12/31/23 01/01/24 01/02/24 01/03/24
06:59 06:59 06:59 06:59
Intake Total 480 / 480 600 / 600 480 / 480
Balance 480 / 480 600 / 600 480 / 480
Physical Exam
Physical Exam
GEN: AAOx3
HEENT: MMM
LUNGS: No audible wheeze
CV: SR on tele
EXT: +1 B/L LE edema
NEURO: Gross non-focal
SKIN: No rash
[2024-01-02 11:40] VITALS: BP 125/79
--- NOTE | 2024-01-02 13:01 | W.DCSUMMARY ---
Discharge Summary
Discharge Data
Date of Admission: 12/30/23
Date of Discharge: 01/02/24
-
Pending Results: No
Hospital Course
88yo F with RA, fibromyalgia, hypothyroidism, HTN, Hx of afib s/p ablation not on meds came with feeling of palpitations, found Afib with RVR readily responded to IV Cardizem. Patient also noticed some pressure in sinuses for couple of days.
S/P CV on 01/01/24 with sustained sinus rhythm. Remained asymptomatic. started on Eliquis and Cardizem by cardiology. Pending final cardio eval ahead of d/c as PT/OT recommended patient to come back to her place with outpatient PT/OT
TURNER: Normal BiV size and systolic function without regional wall motion abnormality, trace aortic regurgitation no evidence of LA/MIHAI/RA thrombus
As per agreement with cardiology - medically stable for d/c
Advised to stop VitD and Calcium supplement
I have spent at least 38min discharging the patient
Patient was managed for:
#Afib, paroxysmal with RVR
#Sinusitis
#Mild recurrent hypercalcemia
#Essential HTN
#RA on chronic prednisone
#Hypothyroidism
#GERD
#Anxiety
#B12 deficiency
Discharge Plan
-
Patient Disposition: Home (Routine Discharge)
Discharge Diagnosis/Procedures: Afib
Blood Work: Repeat BMP with family doctor in 1 week
Other Services: PT
Referrals:
Genoveva Land DO [Family Provider] -
Cary Markham MD [Active] - in two to three weeks (The office will call you with an appt.)
Additional Discharge Medication Instructions: Stop aspirin, Calcium and vit D, dosage of Atenolol and Lasix changed
Prescriptions:
New
Eliquis 2.5 mg Tablet
2.5 mg PO BID Qty: 60 11RF
pantoprazole 40 mg Tablet,Delayed Release (Dr/Ec)
40 mg PO DAILY Qty: 30 0RF
diltiazem HCl 120 mg Capsule,Extended Release 24hr
120 mg PO DAILY Qty: 30 0RF
furosemide 20 mg Tablet
60 mg PO DAILY Qty: 30 0RF
atenolol 50 mg Tablet
100 mg PO DAILY Qty: 30 0RF
Continued
loratadine 10 MG tablet
10 mg PO DAILY
cyanocobalamin (vitamin B-12) 1,000 MCG tablet
1,000 mcg PO DAILY
acetaminophen [Tylenol Extra Strength] 500 MG tablet
1,000 mg PO BID@1200,1800
levothyroxine 50 MCG tablet
75 mcg PO HS
ascorbic acid (vitamin C) [Vitamin C] 500 MG tablet,chewable
500 mg PO DAILY
diazepam 5 MG tablet
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
Centrum Silver 1 EACH tablet
1 ea PO DAILY
potassium chloride 10 MEQ tablet extended release
10 meq PO BID
Patient Comments:
cimetidine 300 mg Tablet
300 mg PO HS
omega 1-rmk-bgs-fish oil [Fish Oil] 1,000 mg (120 mg-180 mg) Capsule
1 cap PO BID@1200,1800
prednisone 5 mg Tablet
2.5 mg PO DAILY
amlodipine 2.5 mg Tablet
2.5 mg PO BID
fluorometholone 0.1 % Drops,Suspension
1 drp BOTH EYES DAILY
carboxymethylcell-hypromellose 0.25-0.3 % Drops, Liquid Gel
1 drp BOTH EYES Q4HPRN PRN (Reason: dry eyes)
Visbiome 112.5 billion cell Capsule
1 cap PO DAILY
cranberry 450 mg Tablet
450 mg PO DAILY
Discontinued
atenolol 100 MG tablet
100 mg PO DAILY
furosemide [Lasix] 40 mg Tablet
60 mg PO DAILY
aspirin 81 mg Tablet,Delayed Release (Dr/Ec)
81 mg PO DAILY
calcium carbonate 500 mg calcium (1,250 mg) Tablet
500 mg PO DAILY
cholecalciferol (vitamin D3) [Vitamin D3] 25 mcg (1,000 unit) Capsule
25 mcg PO DAILY
acetaminophen [Tylenol Extra Strength] 500 mg Tablet
500 mg PO BID@0700,2000
atenolol 50 mg Tablet
50 mg PO DAILYPRN PRN (Reason: blood pressure)
Discharge Date and Time
Print Language: SAMI
--- NOTE | 2024-01-02 13:13 | CM ---
Addendum entered by Jenny Pool 01/02/24 14:34:
Plan; Home with [facility].
Original Note:
Patient to return to home when stable, Marli kraus provided to patient.
Plan; Home back to [facility].
[2024-01-02 15:40] VITALS: BP 112/60
--- NOTE | 2024-01-02 15:54 | VNURNOTE ---
Home Health Liaison met with patient and daughter at bedside to discuss [facility] nurse/therapy, visits, schedule and homebound status. Patient is agreeable and understands that visits at home will be 2-3 x per week to assess and teach medical management.
[facility] brochure provided with contact information. Patient is aware that [facility] will contact them for start of care in 1-2 days after discharge from .
[facility] referral completed in [facility].
== END 2024-01-02 18:15 | disposition home health service (06) | DRG 309 ==
LOC: 4 WEST ACU 17:53
PROVIDERS: Emergency Medicine; Internal Medicine Cardiovascular Disease; Nurse Practitioner Family; ADMITTING PHYSICIAN Internal Medicine; ATTENDING PHYSICIAN Internal Medicine; EMERGENCY PHYSICIAN Student in an Organized Health Care Education/Training Program; FAMILY PHYSICIAN Internal Medicine; OTHER PHYSICIAN Internal Medicine Cardiovascular Disease
PROC: B24BZZ4 Ultrasonography of Heart with Aorta, Transesophageal (ICD-10-PCS; 2024-01-01)
PROC: 5A2204Z Restoration of Cardiac Rhythm, Single (ICD-10-PCS; 2024-01-01)
DX: I48.0 Paroxysmal atrial fibrillation (principal); I13.0 Hypertensive heart and chronic kidney disease with heart failure and stage 1 through stage 4 chronic kidney disease, or unspecified chronic kidney disease; I50.32 Chronic diastolic (congestive) heart failure; Z66 Do not resuscitate; N18.9 Chronic kidney disease, unspecified; Z79.52 Long term (current) use of systemic steroids; E78.00 Pure hypercholesterolemia, unspecified; M06.9 Rheumatoid arthritis, unspecified; E83.52 Hypercalcemia; K21.9 Gastro-esophageal reflux disease without esophagitis; F41.9 Anxiety disorder, unspecified; J32.9 Chronic sinusitis, unspecified; E53.8 Deficiency of other specified B group vitamins
CPT/HCPCS: 71046; 80048; 80053; 81003; 81015; 82306; 83735; 83880; 83970; 84443; 84484; 85025; 85027; 85610; 87070; 92960; 93005; 93306; 93312; 93320; 93325; 96374; 97162; 99285

== ENCOUNTER → 2024-01-09 15:53 | Outpatient (REF) | payer MEDICARE, OTHER, SELFPAY ==
[2024-01-09 16:45] LABS: Blood Urea Nitrogen 32 mg/dl (7-17); Calcium 10.1 mg/dl (8.4-10.2); Carbon Dioxide 24 mmol/L (22-30); Chloride 102 mmol/L (98-107); Glucose 83 mg/dl (70-99); Potassium 4.3 mmol/L (3.5-5.1); Sodium 136 mmol/L (135-145); eGFR 48.33
== END ==
LOC: OLAB 15:53
PROVIDERS: ATTENDING PHYSICIAN Internal Medicine; OTHER PHYSICIAN Internal Medicine Cardiovascular Disease
DX: I10 Essential (primary) hypertension (principal); I48.0 Paroxysmal atrial fibrillation; E87.5 Hyperkalemia
CPT/HCPCS: 36415; 80048

== ENCOUNTER 2024-02-28 15:19 | Emergency (ER) | payer MEDICARE, OTHER, SELFPAY ==
[2024-02-28 15:30] VITALS: BP 154/85
[2024-02-28 16:18] LABS: % Basophils 0.3 % (0-2); % Eosinophils 0.9 % (0-6); % Immature Granulocytes 0.5 % (0-0.5); % Lymphocytes 9.7 % (20.5-51.1); % Monocytes 6.3 % (1.7-9.3); % Neutrophils 82.3 % (42.2-75.2); Absolute Eosinophils 0.1 10^3/uL (0-0.7); Absolute Lymphocytes 0.8 10^3/uL (1.2-3.4); Absolute Monocytes 0.5 10^3/uL (0.1-0.6); Absolute Neutrophils 7.1 10^3/uL (1.4-6.5); Hematocrit 38.2 % (37.0-47.0); Hemoglobin 12.7 g/dL (12.0-16.0); Mean Corp Hgb Conc. 33.2 g/dL (33.0-37.0); Mean Corpuscular Hgb 30.4 pg (27.0-31.0); Mean Corpuscular Volume 91.4 fL (81.0-99.0); Mean Platelet Volume 9.2 fL (7.4-10.4); Nucleated Red Blood Cells % 0.3 %; Platelet Count 229 10^3/uL (130-400); Red Blood Cell Count 4.18 10^6/uL (4.20-5.40); White Blood Cell Count 8.6 10^3/uL (4.8-10.8)
[2024-02-28 16:42] LABS: ALT (SGPT) 22 U/L (0-35); AST (SGOT) 32 U/L (14-36); Albumin 5.2 g/dl (3.5-5.0); Alkaline Phosphatase 88 U/L (38-126); Blood Urea Nitrogen 20 mg/dl (7-17); Calcium 10.2 mg/dl (8.4-10.2); Carbon Dioxide 25 mmol/L (22-30); Chloride 92 mmol/L (98-107); Glucose 105 mg/dl (70-99); Potassium 3.7 mmol/L (3.5-5.1); Sodium 131 mmol/L (135-145); Total Bilirubin 0.9 mg/dl (0.2-1.3); Total Protein 7.9 g/dl (6.3-8.2); eGFR > 60.00
[2024-02-28 19:50] VITALS: BP 193/96
[2024-02-28 19:55] VITALS: BMI 23.8
[2024-02-28 20:00] VITALS: BP 195/169
--- NOTE | 2024-02-28 20:03 | ED.GENMED ---
History of Present Illness
General
Chief Complaint: Blood Pressure Problem
Source: patient
Time Seen by Provider: 02/28/24 19:27
History of Present Illness
History of Present Illness:
This patient is an 88-year-old female who states that she checks her blood pressure every morning and is compliant with her medications. For the past few days, she has noted that her blood pressure has been abnormally elevated and in responses has
taken an extra 'half of a pill' for her blood pressure. This morning, her blood pressure was very elevated and she took an extra half pill as she has been. However, upon rechecking it it was still little elevated and upon her doctor's advice took
half of the Lasix. She was worried due to continued elevated blood pressure. In regards to symptoms she says she feels a little 'shaky', 'upset', with a mild headache in the frontal area that is not sudden in onset or worst of life. She denies
numbness, tingling, focal weakness, visual changes, change in speech. Patient has a history of vestibular problems and felt like she was a little dizzy in the waiting room which is now resolved. She monitors her weight and that has been unchanged.
She is eating as usual without vomiting, fever, chills, chest pain or pressure. She does note that she has had intermittent mild dyspnea for the past few days although not currently. She denies orthopnea or PND or increased lower extremity
swelling.
Past History
Past History
ED Past Medical History: Arrthythmia (Atrial fib), CAD, HTN, Hypercholesterolemia, Hypothyroidism and Other (fibromyalgia)
ED Past Surgical History: Appendectomy, Cardiac (ablation, ), Orthopedic, Tonsilectomy and Other (Partial thyroidectomy)
Social History
Tobacco: Non-smoker
Alcohol: Occasional
Drug: None
Personal:
Living: assisted living
Employment: Retired
Family History
Family History: Other (Mother with [place]. Father with testicular cancer)
Phy Exam
Physical Exam
Physical Exam:
GENERAL: Alert , in no apparent distress, very pleasant, makes conversation, walks about the room easily
EYE: pupils equal and reactive
NECK: Supple, no significant adenopathy.
ENT: o/p clr, mmm.
CARDIAC: Regular rate and rhythm .
LUNGS: Clear breath sounds bilaterally, no acute respiratory distress, no wheezes/rales/rhonchi
ABDOMEN: Soft, without focal tenderness, no r/g, no cvat
NEUROLOGICAL: Alert and oriented, no focal neuro deficits
SKIN: Warm and dry, skin intact.
MUSCULOSKELETAL: Trace to 1+ bilateral lower extremity edema, well perfused.
PSYCH: Normal and appropriate interaction.
Course
Orders/Labs/Results
Orders:
Orders
02/28/24 15:34
Electrocardiogram (*1) Urgent
Reason for Study: Vertigo / Dizzy
EKG- Treatment ONCE
02/28/24 16:01
Complete Blood Count/With Diff Urgent
Comprehensive Metabolic Panel Urgent
02/28/24 20:11
Amlodipine [Norvasc] 5 mg PO NOW STA
02/28/24 22:30
Acetaminophen [Tylenol] 650 mg PO NOW STA
Apixaban [Eliquis] 2.5 mg PO NOW STA
Abnormal Lab Results
02/28/24
16:01
RBC 4.18 L 10^6/uL
(4.20-5.40)
Absolute Neuts (auto) 7.1 H 10^3/uL
(1.4-6.5)
Absolute Lymphs (auto) 0.8 L 10^3/uL
(1.2-3.4)
Neutrophils % 82.3 H %
(42.2-75.2)
Lymphocytes % 9.7 L %
(20.5-51.1)
Sodium 131 L mmol/L
(135-145)
Chloride 92 L mmol/L
(98-107)
BUN 20 H mg/dl
(7-17)
Glucose 105 H mg/dl
(70-99)
Albumin 5.2 H g/dl
(3.5-5.0)
02/28/24 16:01
02/28/24 16:01
Vital Signs
Initial and Last Documented VS:
Initial Vital Signs
Temp Pulse Resp BP Pulse Ox
97.6 F 64 18 154/85 98
02/28/24 15:30 02/28/24 15:30 02/28/24 15:30 02/28/24 15:30 02/28/24 15:30
Last Documented Vital Signs
Temp Pulse Resp BP Pulse Ox
97.6 F 63 25 160/77 96
02/28/24 15:30 02/28/24 22:15 02/28/24 22:15 02/28/24 22:00 02/28/24 22:15
Update Note
Update Note:
Patient presents to the Emergency Department with ___persistent hypertension
Number and Complexity of Problems Addressed at the Encounter
� Chronic conditions affecting care:
� Acute Exacerbation and/or Progression of Chronic Illness:
� Differential Diagnosis includes: But not limited to medication noncompliance, anxiety, medication tolerance, hypertensive urgency, etc.
Amount and/or Complexity of Data to be Reviewed and Analyzed
� I performed an independent evaluation of and my interpretation is:
EKG: Read by me, sinus bradycardia, nonspecific T wave flattening, no acute ischemia
CT:
Xrays:
Laboratory Studies:generally unremarkable
Other:
� Review of other/old records reveals: Patient's weight on January 01 was 59.165 kg this was compared to today's weight. Patient was also seen for A-fib status post cardioversion, I reviewed the discharge summary as well as the
medications that she was discharged at that time pain attention to her hypertensive meds.
� Clinical information was obtained by an independent historian:
� Prescriptions/Medications Considered but not given:
� Further testing considered but not performed:
Risk of Complications and/or Morbidity or Mortality of Patient Management
� Social determinants of health affecting care:
� Discussion with other providers (PCP, Hospitalists, Consultants, etc):
� Escalation of care including admission/observation vs risk of discharge considered: 8:10 PM patient without any signs or symptoms to suggest endorgan injury, no chest pain, no dyspnea, no neurological findings, headache is
described as mild, etc. Patient's heart rate is in the 60s and therefore I will avoid giving her additional atenolol. Will give her an additional dose of amlodipine and monitor closely.
11:10 PM patient remains comfortable, pleasant, no distress. Blood pressure continues to come down, no new symptoms to suggest endorgan injury. I did try to contact Dr. Mari Allison who works with Dr. Markham in regards to modifications to her
blood pressure medications but was unable to reach via [place] text. I recommend patient take an extra dose of Norvasc each a.m. and see her die grinder on Saturday for further management. Advised her regarding importance of follow-up and reasons
return to the ER.
ED Attending Note
-
Portions of this chart may have been created with voice recognition software.� Occasional wrong word or��sound alike� substitutions may have occurred due to the inherent limitations of voice recognition software.
Discharge Plan
Departure
Patient Disposition: Home (Routine Discharge)
Date of Disposition: 02/28/24
Time of Disposition: 23:08
Patient with high blood pressure during this ER visit?: Yes
Condition: Good
Discharge Problem:
Hypertension
Instructions: BLOOD PRESSURE
Prescriptions:
No Action
loratadine 10 MG tablet
10 mg PO DAILY
cyanocobalamin (vitamin B-12) 1,000 MCG tablet
1,000 mcg PO DAILY
acetaminophen [Tylenol Extra Strength] 500 MG tablet
1,000 mg PO BID@1200,1800
levothyroxine 50 MCG tablet
75 mcg PO HS
ascorbic acid (vitamin C) [Vitamin C] 500 MG tablet,chewable
500 mg PO DAILY
diazepam 5 MG tablet
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
Centrum Silver 1 EACH tablet
1 ea PO DAILY
potassium chloride 10 MEQ tablet extended release
10 meq PO BID
Patient Comments:
cimetidine 300 mg Tablet
300 mg PO HS
omega 6-pps-lob-fish oil [Fish Oil] 1,000 mg (120 mg-180 mg) Capsule
1 cap PO BID@1200,1800
prednisone 5 mg Tablet
2.5 mg PO DAILY
fluorometholone 0.1 % Drops,Suspension
1 drp BOTH EYES DAILY
carboxymethylcell-hypromellose 0.25-0.3 % Drops, Liquid Gel
1 drp BOTH EYES Q4HPRN PRN (Reason: dry eyes)
Visbiome 112.5 billion cell Capsule
1 cap PO DAILY
cranberry 450 mg Tablet
450 mg PO DAILY
Eliquis 2.5 mg Tablet
2.5 mg PO BID Qty: 60 11RF
pantoprazole 40 mg Tablet,Delayed Release (Dr/Ec)
40 mg PO DAILY Qty: 30 0RF
diltiazem HCl 120 mg Capsule,Extended Release 24hr
120 mg PO DAILY Qty: 30 0RF
furosemide 20 mg Tablet
60 mg PO DAILY Qty: 30 0RF
atenolol 50 mg Tablet
100 mg PO DAILY Qty: 30 0RF
Referrals:
Genoveva Land DO [Family Provider] -
Cary Markham MD [Active] - Follow up in 2-3 days
Activity Restrictions/Additional Instructions:
PLEASE CONTACT YOUR WORSTED WINDER ON SATURDAY FOR FURTHER MANAGEMENT. YOU SHOULD TAKE NORVASC, 2.5 MG, EVERY MORNING, IN ADDITION TO THE DOSE THAT YOU TAKE AT NIGHT. IF YOU DEVELPO SEVERE HEADACHE, FEVER, CHEST PAIN, TROUBLE BREATHING, NUMBNESS,
CHANGE IN SPEECH, OR OTHER WORRISOME SIGNS, GO TO THE ER IMMEDIATELY!
Interventions
Interventions:
*Risk Screen - Suicide Last Done: 02/28/24 15:30
*General Assessment Last Done: 02/28/24 15:30
*Neglect/Abuse Screening Last Done: 02/28/24 15:30
ED- Fall Risk Assessment Last Done: 02/28/24 19:55
ED- Cardiac Assessment Last Done: 02/28/24 19:55
ED- Neurological Assessment Last Done: 02/28/24 19:55
ED- Pulmonary Assessment Last Done: 02/28/24 19:55
Discharge Date and Time
Print Language: THAI
[2024-02-28] MEDS: NORVASC 5 MG PO (20:39)
[2024-02-28 21:00] VITALS: BP 172/80
[2024-02-28 22:00] VITALS: BP 160/77
[2024-02-28] MEDS: TYLENOL 650 MG PO (23:04)
[2024-02-28] MEDS: ELIQUIS 2.5 MG PO (23:06)
[2024-02-29 06:49] VITALS: BP 161/75
== END 2024-02-29 06:51 | disposition home or self-care (01) ==
LOC: EMR 15:19
PROVIDERS: Emergency Medicine; EMERGENCY PHYSICIAN Emergency Medicine; FAMILY PHYSICIAN Internal Medicine
DX: I10 Essential (primary) hypertension (principal)
CPT/HCPCS: 99284; 80053; 85025; 93005

== ENCOUNTER 2025-02-28 22:58 | Emergency (ER) | payer MEDICARE, OTHER, SELFPAY ==
[2025-02-28 23:20] VITALS: BP 174/89
[2025-03-01] LABS: Hematocrit 38.6 % (37.0-47.0); Hemoglobin 12.9 g/dL (12.0-16.0); Mean Corp Hgb Conc. 33.4 g/dL (33.0-37.0); Mean Corpuscular Volume 89.8 fL (81.0-99.0); Nucleated Red Blood Cells % 0 %; Platelet Count 242 10^3/uL (130-400); Red Cell Dist. Width 14.0 % (11.5-14.5)
[2025-03-01 00:20] LABS: ALT (SGPT) 22 U/L (0-35); AST (SGOT) 28 U/L (14-36); Albumin 4.7 g/dl (3.5-5.0); Alkaline Phosphatase 115 U/L (38-126); Blood Urea Nitrogen 29 mg/dl (7-17); Calcium 10.2 mg/dl (8.4-10.2); Carbon Dioxide 25 mmol/L (22-30); Chloride 97 mmol/L (98-107); Glucose 106 mg/dl (70-99); Potassium 4.1 mmol/L (3.5-5.1); Sodium 129 mmol/L (135-145); Total Protein 7.6 g/dl (6.3-8.2); eGFR 53.85
[2025-03-01 00:25] LABS: Troponin I < 0.012 ng/ml
[2025-03-01 02:24] VITALS: BP 148/72
[2025-03-01 02:28] VITALS: BMI 25.3
[2025-03-01 03:00] VITALS: BP 152/81
--- NOTE | 2025-03-01 03:54 | ED.GENMED ---
History of Present Illness
General
Chief Complaint: Blood Pressure Problem
Source: patient
Exam Limitations: none
Time Seen by Provider: 03/01/25 03:00
Nursing documentation reviewed up to this point in time: agreed with
History of Present Illness
History of Present Illness:
89-year-old female hypertension fibromyalgia arthritis presents with elevated blood pressure 210/110 she took an extra dose of her metoprolol call 911, here she is resting comfortably blood pressure is normalized she has no chest pain no shortness
of breath has chronic leg pain from her fibromyalgia, no fever or chills
Past History
Past History
ED Past Medical History: Arrthythmia (Atrial fib), CAD, HTN, Hypercholesterolemia, Hypothyroidism and Other (fibromyalgia)
ED Past Surgical History: Appendectomy, Cardiac (ablation, ), Orthopedic, Tonsilectomy and Other (Partial thyroidectomy)
Social History
Tobacco: Non-smoker
Alcohol: Occasional
Drug: None
Personal:
Living: assisted living
Employment: Retired
Family History
Family History: Other (Mother with LA. Father with testicular cancer)
Review of Systems
Review of Systems
All Other Systems: Not applicable
Constitutional: Denies sleep disturbance
EENT: Reports no symptoms
Respiratory: Reports no symptoms; Denies cough
Cardiac: Reports no symptoms; Denies chest pain
ABD/GI: Reports no symptoms
Musculoskeletal: Reports no symptoms
Neurological: Denies dizzy or headache
Endocrine: Reports no symptoms
Psychiatric: Reports anxiety; Denies depression or suicidal
Phy Exam
Physical Exam
Physical Exam:
Physical Exam
General: no apparent distress, not acutely ill
Neck: No jaundice
Heart: Regular
Lungs: no acute respiratory distress. clear bilaterally
Abdomen mild
Neuro: alert and oriented. no focal neurological deficits
Skin: no rash
Psychiatric: well kept. interactive and cooperative
Extremities: Edema as per
Course
Orders/Labs/Results
Orders:
Orders
02/28/25 23:30
Electrocardiogram (*1) Urgent
Reason for Study: Hypertension, Benign
02/28/25 23:31
EKG- Treatment ONCE
02/28/25 23:54
Comprehensive Metabolic Panel Urgent
02/28/25 23:55
Complete Blood Count/With Diff Urgent
Troponin I Urgent
Abnormal Lab Results
02/28/25 02/28/25
23:54 23:55
Absolute Lymphs (auto) 1.1 L 10^3/uL
(1.2-3.4)
Absolute Monos (auto) 0.7 H 10^3/uL
(0.1-0.6)
Neutrophils % 76.7 H %
(42.2-75.2)
Lymphocytes % 12.4 L %
(20.5-51.1)
Sodium 129 L mmol/L
(135-145)
Chloride 97 L mmol/L
(98-107)
BUN 29 H mg/dl
(7-17)
Glucose 106 H mg/dl
(70-99)
02/28/25 23:55
02/28/25 23:54
Vital Signs
Initial and Last Documented VS:
Initial Vital Signs
Temp Pulse Resp BP Pulse Ox
98.5 F 62 16 174/89 96
02/28/25 23:20 02/28/25 23:20 02/28/25 23:20 02/28/25 23:20 02/28/25 23:20
Last Documented Vital Signs
Temp Pulse Resp BP Pulse Ox
98.5 F 62 16 174/89 97
02/28/25 23:20 02/28/25 23:20 02/28/25 23:20 02/28/25 23:20 12/29/25 02:28
MDM/Problems Addressed
Differential Diagnosis Includes:
Hypertension urgency accelerated hypertension
MDM/Problems Addressed:
High blood
Chronic conditions affecting care: HTN
Acute Exacerbation and/or Progression of Chronic Illness: HTN
*Pulse Oximetry
SaO2: 97
Oxygen Mode of Delivery: Room air
Patient hypoxic: no
*EKG
Interpreted by ED Provider?: Yes
Interpretation: normal
Comparison EKG: no comparison EKG present
Heart Rate: 70
Rate: normal
Rhythm: sinus
Ischemia: non-specific ST changes
*Topographical Field Assistant Interpretation
Rate: normal
Interpretation: normal
Heart Rate: 78
Rhythm: sinus
*Critical Care Note
Total Time (30-74mins, 75-104mins- exclusive of procedures): Not Applicable
Data Reviewed
Review of Other/Old Records Reveals: Labs
Source: patient
Update Note
Update Note:
Update blood pressure normalized without any treatment here patient monitored for few hours with no complaints she stable to go home sodium is noted, would like not to make any changes as she is asymptomatic now, have her follow-up with her PCP and
cardiology
ED Attending Note
-
Portions of this chart may have been created with voice recognition software.� Occasional wrong word or��sound alike� substitutions may have occurred due to the inherent limitations of voice recognition software.
Discharge Plan
Departure
Patient Disposition: Home (Routine Discharge)
Date of Disposition: 03/01/25
Time of Disposition: 03:59
Patient with high blood pressure during this ER visit?: Yes
Condition: Good
Discharge Problem:
Hypertension
Instructions: BLOOD PRESSURE
Prescriptions:
No Action
loratadine 10 MG tablet
10 mg PO DAILY
cyanocobalamin (vitamin B-12) 1,000 MCG tablet
1,000 mcg PO DAILY
acetaminophen [Tylenol Extra Strength] 500 MG tablet
1,000 mg PO BID@1200,1800
levothyroxine 50 MCG tablet
75 mcg PO HS
ascorbic acid (vitamin C) [Vitamin C] 500 MG tablet,chewable
500 mg PO DAILY
diazepam 5 MG tablet
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
Centrum Silver 1 EACH tablet
1 ea PO DAILY
potassium chloride 10 MEQ tablet extended release
10 meq PO BID
Patient Comments:
cimetidine 300 mg Tablet
300 mg PO HS
omega 8-alc-itn-fish oil [Fish Oil] 1,000 mg (120 mg-180 mg) Capsule
1 cap PO BID@1200,1800
prednisone 5 mg Tablet
2.5 mg PO DAILY
fluorometholone 0.1 % Drops,Suspension
1 drp BOTH EYES DAILY
carboxymethylcell-hypromellose 0.25-0.3 % Drops, Liquid Gel
1 drp BOTH EYES Q4HPRN PRN (Reason: dry eyes)
Visbiome 112.5 billion cell Capsule
1 cap PO DAILY
cranberry 450 mg Tablet
450 mg PO DAILY
Eliquis 2.5 mg Tablet
2.5 mg PO BID Qty: 60 11RF
pantoprazole 40 mg Tablet,Delayed Release (Dr/Ec)
40 mg PO DAILY Qty: 30 0RF
diltiazem HCl 120 mg Capsule,Extended Release 24hr
120 mg PO DAILY Qty: 30 0RF
furosemide 20 mg Tablet
60 mg PO DAILY Qty: 30 0RF
atenolol 50 mg Tablet
100 mg PO DAILY Qty: 30 0RF
Activity Restrictions/Additional Instructions:
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
Interventions
Interventions:
*General Assessment Last Done: 03/01/25 02:28
*Neglect/Abuse Screening Last Done: 03/01/25 02:28
*ED COVID-19 Vaccine History Last Done: 03/01/25 02:28
*ED Influenza Vaccine History Last Done: 03/01/25 02:28
[facility] Fall Risk Assessment Tool Last Done: 03/01/25 02:28
*Risk Screen - Suicide (C-SSRS) Last Done: 02/28/25 23:20
ED- Cardiac Assessment Last Done: 03/01/25 02:28
ED- Neurological Assessment Last Done: 03/01/25 02:28
ED- Pulmonary Assessment Last Done: 03/01/25 02:28
Discharge Date and Time
Print Language: DANISH
[2025-03-01 04:00] VITALS: BP 133/70
[2025-03-01 05:00] VITALS: BP 152/76
[2025-03-01 05:40] VITALS: BP 167/89
== END 2025-03-01 05:55 | disposition home or self-care (01) ==
LOC: EMR 22:58
PROVIDERS: EMERGENCY PHYSICIAN Emergency Medicine; FAMILY PHYSICIAN Internal Medicine
DX: I10 Essential (primary) hypertension (principal); I25.10 Atherosclerotic heart disease of native coronary artery without angina pectoris; I48.91 Unspecified atrial fibrillation; E78.00 Pure hypercholesterolemia, unspecified; E89.0 Postprocedural hypothyroidism; M79.7 Fibromyalgia; M19.90 Unspecified osteoarthritis, unspecified site; Z82.49 Family history of ischemic heart disease and other diseases of the circulatory system
CPT/HCPCS: 99284; 80053; 84484; 85025; 93005